=== PATIENT | female | born 1950 | race Caucasian/White ===

== ENCOUNTER 2016-12-05 08:47 | Outpatient (CLI) | payer MEDICAID | END 2016-12-05 08:48 | disposition home or self-care (01) | DX: I10 Essential (primary) hypertension (principal); E78.5 Hyperlipidemia, unspecified ==

== ENCOUNTER 2017-12-16 08:00 | Outpatient (CLI) | payer MEDICAID ==
[2017-12-16 19:17] LABS: BASOPHILS % (AUTO) 0.8 %; EOSINOPHILS # (AUTO) 0.1 10^3/uL (0.0-0.7); EOSINOPHILS % (AUTO) 2.8 %; HGB - HEMOGLOBIN 12.3 g/dL (12.0-16.0); LYMPHOCYTES # (AUTO) 1.5 10^3/uL (1.5-3.5); LYMPHOCYTES % (AUTO) 36.8 %; MEAN CORPUSCULAR HEMOGLOBIN 29.3 pg (27.0-31.0); MEAN CORPUSCULAR HGB CONC 32.5 g/dL (32.0-36.0); MEAN CORPUSCULAR VOLUME 90.4 fL (81.0-99.0); MEAN PLATELET VOLUME 8.9 fL (7.9-10.8); MONOCYTES # (AUTO) 0.5 10^3/uL (0.0-1.0); MONOCYTES % (AUTO) 12.1 %; NEUTROPHILS % (AUTO) 47.5 %; PLT - PLATELET COUNT 297 10^3/uL (130-450); RED BLOOD COUNT 4.19 10^6/uL (4.20-5.40); RED CELL DISTRIBUTION WIDTH 14.5 % (12.0-15.0); WHITE BLOOD COUNT 4.1 x10^3/uL (4.8-10.8)
[2017-12-16 19:52] LABS: ALBUMIN 3.9 g/dL (3.2-5.5); ALBUMIN/GLOBULIN RATIO 1.4 (1.0-2.2); ALKALINE PHOSPHATASE 57 IU/L (42-121); ALT ALANINE AMINOTRANSFERASE 15 IU/L (10-60); AST ASPARTATE AMINOTRANSFERASE 21 IU/L (10-42); BILIRUBIN,TOTAL 0.3 mg/dL (0.2-1.0); BUN - BLOOD UREA NITROGEN 9 mg/dL (6-20); CALCIUM 9.1 mg/dL (8.5-10.3); CARBON DIOXIDE - CO2 26 mmol/L (21-32); CHLORIDE 101 mmol/L (101-111); CHOL/HDL RATIO 4.1 (<4.4); CHOLESTEROL 277 mg/dL; CREATININE 0.7 mg/dL (0.4-1.0); GFR - MDRD 84 (>89); GLUCOSE 84 mg/dL (70-100); HDL CHOLESTEROL 68 mg/dL; LDL CHOLESTEROL,CALCULATED 171 mg/dL; LDL/HDL RATIO 2.5 (<4.4); SODIUM 136 mmol/L (135-145); TOTAL PROTEIN 6.6 g/dL (6.7-8.2); VLDL CHOLESTEROL 38 mg/dL
== END 2017-12-16 08:01 | disposition home or self-care (01) ==
LOC: LAB.N 08:00
PROVIDERS: ATTEND Nurse Practitioner Gerontology
DX: I10 Essential (primary) hypertension (principal); E78.5 Hyperlipidemia, unspecified; E03.9 Hypothyroidism, unspecified
CPT/HCPCS: 36415; 80050; 80061; 83721

== ENCOUNTER 2018-03-18 08:00 | Outpatient (CLI) | payer MEDICARE, MEDICAID ==
[2018-03-20 08:25] LABS: HEPATITIS C ANTIBODY NON-REACTIVE (NON-REACTIVE)
== END 2018-03-18 08:01 | disposition home or self-care (01) ==
LOC: LAB.N 08:00
PROVIDERS: ATTEND Nurse Practitioner Gerontology
DX: Z72.89 Other problems related to lifestyle (principal)
CPT/HCPCS: 36415; 86803

== ENCOUNTER 2019-05-11 12:01 | Outpatient (CLI) | payer MEDICARE ==
--- NOTE | 2019-05-12 08:22 | Mammography Report ---
Reason: SCREENING MAMMO Procedure Date: 05/11/2019 Accession Number: [id number] / [id number] Procedure: MGN - Screening Mammo Dig Bilat CPT Code: FULL RESULT: EXAM: Screening Mammo Dig Bilat DATE: 05/11/2019 12:29 PM CLINICAL HISTORY: Screening encounter. No reported risk factors. TECHNIQUE: (B) - Bilateral CC and MLO views were obtained. COMPARISON: 11/28/2015 and 12/10/2013. PARENCHYMAL PATTERN: (F) - The breast(s) demonstrate(s) diffuse fatty replacement. FINDINGS: A posterior upper breast nodule with architectural appearance and location most compatible with lymph node is noted dating as far back as 2013 but has now enlarged, 1.3 x 0.9 cm 17.8 cm from the nipple on the right MLO view with an adjacent stable well-circumscribed isodense 0.6 cm nodule. This is not seen in CC projection. Recommend focused right breast ultrasound to confirm preservation of normal lymph node architecture to confirm the interval increase in prominence as a reactive finding. There are no suspicious masses, calcifications, or areas of distortion in the left breast. IMPRESSION: Incomplete examination. BI-RADS category 0. RECOMMENDATION: (ADDUS) - Targeted ultrasound recommended. Focused right breast ultrasound. BI-RADS CATEGORY: (0) - Incomplete Examination - need additional evaluation. STANDARD QUALIFYING STATEMENTS: 1. This examination was not reviewed with the aid of Computer-Aided Detection (CAD). 2. A negative or benign imaging report should not preclude biopsy if clinically suspicious findings are present. 3. Dense breasts may obscure an underlying neoplasm. 4. This examination was reviewed without the aid of 3D breast imaging (tomosynthesis).
== END 2019-05-11 12:02 | disposition home or self-care (01) ==
LOC: DI.N 12:01
DX: Z12.31 Encounter for screening mammogram for malignant neoplasm of breast (principal); R92.8 Other abnormal and inconclusive findings on diagnostic imaging of breast
CPT/HCPCS: 77067

== ENCOUNTER 2019-07-26 11:16 | Outpatient (CLI) | payer MEDICARE ==
--- NOTE | 2019-07-26 13:44 | Ultrasound Report ---
Reason: ABNORMAL MAMMOGRAM Procedure Date: 07/26/2019 Accession Number: [id number] / [id number] Procedure: US - Breast Unilateral Limited CPT Code: FULL RESULT: EXAM: Breast Ultrasound Unilateral Limited DATE: 07/26/2019 12:35 PM CLINICAL HISTORY: ABNORMAL MAMMOGRAM COMPARISON: 05/11/2019 mammogram. TECHNIQUE: Targeted ultrasound was performed of the right breast in the area of clinical concern at 9:00 o'clock and 14 cm distance from the nipple. Color Doppler was employed as appropriate. FINDINGS: 2 adjacent lymph nodes are present corresponding to the mammographic abnormality. The larger measures 1.1 x 0.9 x 0.7 cm with an adjacent 0.4 x 0.3 x 0.4 cm lymph node. Both lymph nodes are morphologically unremarkable. In the right axilla a prominent 1.9 x 1 x 2.3 cm lymph node is seen. IMPRESSION: Probable benign findings right breast RECOMMENDATION: Recommend diagnostic right mammogram and ultrasound in 6 months. BIRADS CATEGORY 3 probably benign RADIA
== END 2019-07-26 11:17 | disposition home or self-care (01) ==
LOC: DI 11:16
PROVIDERS: ATTEND Specialist
DX: R92.8 Other abnormal and inconclusive findings on diagnostic imaging of breast (principal)
CPT/HCPCS: 76642

== ENCOUNTER 2020-05-03 10:54 | Outpatient (CLI) | payer MEDICARE ==
--- NOTE | 2020-05-04 08:13 | Mammography Report ---
UNILATERAL RIGHT DIGITAL DIAGNOSTIC MAMMOGRAM 3D/2D: 05/03/2020 CLINICAL: Patient returns for a 6 month follow up of the right breast. Comparison is made to exams dated: 05/11/2019 mammogram, 11/28/2015 mammogram, and 12/10/2013 mammogram - [facility]. The tissue of right breast is predominantly fatty. There is a stable normal appearing lymph node in the right breast posterior depth superior region see n on the mediolateral oblique view only. This is decreased in size from the prior mammogram dated 07/26/19, and has a similar appearance to prior mammograms. No other significant masses or calcifications are seen in the breast. IMPRESSION: There is no mammographic evidence of malignancy. Return to annual mammogram screening schedule is rec ommended. This exam was interpreted at Station ID: [id number]. NOTE: For mammograms, a report in lay terms will be sent to the patient. Approximately 15% of breast malignancies will not be visualized mammographically. In the management of a palpable breast mass, a negative mammogram must not discourage biopsy of a clinically suspicious lesion. Electronically Signed By: Gisela Jolley M.D. lk/:05/03/2020 12:23:17 ACR BI-RADS Category 2: Benign Finding(s) 3342F PARENCHYMAL PATTERN: (F) - The breast(s) demonstrate(s) diffuse fatty replacement. BI-RADS CATEGORY: (2) - 2 RECOMMENDATION: (ANNUAL) - Recommend routine annual screening mammography. [id number] return to screening LATERALITY: (B)
== END 2020-05-03 10:55 | disposition home or self-care (01) ==
LOC: DI 10:54
PROVIDERS: ATTEND Physician Assistant Medical
DX: R92.8 Other abnormal and inconclusive findings on diagnostic imaging of breast (principal)

== ENCOUNTER 2020-08-07 06:25 | Emergency (ER) | payer MEDICARE ==
[2020-08-07 06:48] LABS: BASOPHILS # (AUTO) 0.1 10^3/uL (0.0-0.1); BASOPHILS % (AUTO) 0.6 %; EOSINOPHILS # (AUTO) 0.1 10^3/uL (0.0-0.7); EOSINOPHILS % (AUTO) 1.2 %; HGB - HEMOGLOBIN 8.3 g/dL (12.0-16.0); LYMPHOCYTES # (AUTO) 1.6 10^3/uL (1.5-3.5); LYMPHOCYTES % (AUTO) 18.1 %; MEAN CORPUSCULAR HEMOGLOBIN 21.1 pg (27.0-31.0); MEAN CORPUSCULAR HGB CONC 30.2 g/dL (32.0-36.0); MEAN CORPUSCULAR VOLUME 69.8 fL (81.0-99.0); MEAN PLATELET VOLUME 9.6 fL (7.9-10.8); MONOCYTES # (AUTO) 0.9 10^3/uL (0.0-1.0); NEUTROPHILS # (AUTO) 6.2 10^3/uL (1.5-6.6); NEUTROPHILS % (AUTO) 69.9 %; PLT - PLATELET COUNT 442 10^3/uL (130-450); RED BLOOD COUNT 3.94 10^6/uL (4.20-5.40); RED CELL DISTRIBUTION WIDTH 19.1 % (12.0-15.0); WHITE BLOOD COUNT 8.8 x10^3/uL (4.8-10.8)
[2020-08-07 07:01] LABS: ALBUMIN 4.1 g/dL (3.2-5.5); ALBUMIN/GLOBULIN RATIO 1.4 (1.0-2.2); BILIRUBIN,TOTAL 0.7 mg/dL (0.2-1.0); CALCIUM 9.1 mg/dL (8.5-10.3); CREATININE 0.7 mg/dL (0.4-1.0); TOTAL PROTEIN 7.1 g/dL (6.7-8.2)
--- NOTE | 2020-08-07 07:05 | ED Physician Documentation ---
PD HPI ABD PAIN - Stated complaint Stated Complaint: ABDOMINAL PX - Chief complaint Chief Complaint: Abd Pain - History obtained from History obtained from: Patient - History of Present Illness Timing - onset: Yesterday Timing - duration: Days (2) Timing - details: Abrupt onset, Still present Quality: Aching, Sharp, Pain Location: LUQ, LLQ Radiation: No: Lower back, Left flank Improved by: Vomiting (once yesterday with the pain). No: Eating Worsened by: No: Eating Associated symptoms: Nausea, Constipation (had some constipation recently but then larger BM yesterday after the cramping pain. Pain improved. Today with some softer stool, mild red color with wiping. Has left lower pain today.), Hematochezia (some red with wiping and around the stool yesterday and then again today. No signifant bleeding amount. No clots. no melena.). No: Fever, Melena, Dysuria, Near syncope / syncope Similar symptoms before: Has not had sx before Review of Systems Constitutional: denies: Fever, Chills Nose: denies: Rhinorrhea / runny nose, Congestion Throat: denies: Sore throat Respiratory: denies: Cough GI: reports: Constipation : denies: Dysuria, Frequency PD PAST MEDICAL HISTORY - Past Medical History Past Medical History: Yes Cardiovascular: Hypertension, High cholesterol Respiratory: None Endocrine/Autoimmune: HyPOthyroidism, Other GI: Other : None HEENT: None Psych: None Musculoskeletal: Osteoarthritis, Chronic back pain, Other Derm: None Other Past Medical History: GASTRIC ULCER. history of iron deficiency anemia; does not take Iron supplement due to constipating. - Past Surgical History Past Surgical History: Yes General: Colonoscopy Ortho: Knee replacement, Other /ELECTRIC TRUCK OPERATOR: Tubal ligation - Present Medications Home Medications: Ambulatory Orders Medication Instructions Recorded Confirmed Ferrous Fumarate [Iron] 55 mg PO DAILY 03/23/13 10/04/15 Lisinopril 20 mg PO 03/23/13 10/04/15 Levothyroxine [Synthroid] 50 mcg PO QDAC 09/24/13 10/04/15 traMADol [Ultram] 50 mg PO Q4-6H 09/24/13 10/04/15 Cholesterol Med 10/04/15 10/04/15 HYDROcod/ACETAM 5/325 [[place] 5/325] 1 - 2 ea PO Q6H PRN #15 tablet 10/04/15 Cephalexin [Keflex] 500 mg PO TID #15 capsule 08/07/20 Docusate Sodium 100 mg PO DAILY #30 capsule 08/07/20 Ferrous Sulfate 325 mg PO DAILY #30 tablet 08/07/20 Naproxen 375 mg PO TID #15 tablet 08/07/20 metroNIDAZOLE [Flagyl] 500 mg PO BID #10 tablet 08/07/20 - Allergies Allergies/Adverse Reactions: Allergies Allergy/AdvReac Type Severity Reaction Status Date / Time No Known Drug Allergies Allergy Verified 08/07/20 06:43 - Social History Does the pt smoke?: No Smoking Status: Never smoker Does the pt drink ETOH?: No PD ED PE NORMAL - Vitals Vital signs reviewed: Yes - General General: Alert and oriented X 3, No acute distress, Well developed/nourished - HEENT HEENT: Moist mucous membranes, Pharynx benign - Neck Neck: Supple, no meningeal sign, No adenopathy - Cardiac Cardiac: RRR, No murmur - Respiratory Respiratory: Clear bilaterally - Abdomen Abdomen: Normal bowel sounds, Soft, Non distended, No organomegaly, Other (minimally tender left lower abd without percussion nor rebound tenderness. ) Results - Vitals Vitals: Vital Signs - 24 hr 08/07/20 08/07/20 08/07/20 06:25 08:25 09:59 Temperature 36.7 C 36.2 C L Heart Rate 99 66 77 Respiratory 18 18 16 Rate Blood Pressure 144/86 H 135/84 H 132/78 H O2 Saturation 98 98 100 Oxygen O2 Source Room air - Labs Labs: Laboratory Tests 08/07/20 08/07/20 08/07/20 06:42 06:42 06:42 WBC 8.8 RBC 3.94 L Hgb 8.3 L Hct 27.5 L MCV 69.8 L MCH 21.1 L MCHC 30.2 L RDW 19.1 H Plt Count 442 MPV 9.6 Neut # (Auto) 6.2 Lymph # (Auto) 1.6 [place] # (Auto) 0.9 Eos # (Auto) 0.1 Baso # (Auto) 0.1 Absolute Nucleated RBC 0.00 Nucleated RBC % 0.0 Sodium 136 Potassium 3.5 Chloride 104 Carbon Dioxide 22 Anion Gap 10.0 BUN 9 Creatinine 0.7 Estimated GFR (MDRD) 83 L Glucose 134 H Calcium 9.1 Iron 14 L TIBC 497 H % Saturation 3 L Transferrin 355 Total Bilirubin 0.7 AST 25 ALT 23 Alkaline Phosphatase 79 Total Protein 7.1 Albumin 4.1 Globulin 3.0 Albumin/Globulin Ratio 1.4 Lipase 32 Urine Color Urine Clarity Urine pH Ur Specific [place] Urine Protein Urine Glucose (UA) Urine Ketones Urine Occult Blood Urine Nitrite Urine Bilirubin Urine Urobilinogen Ur Leukocyte Esterase Ur Microscopic Review Urine Culture Comments 08/07/20 08:25 WBC RBC Hgb Hct MCV MCH MCHC RDW Plt Count MPV Neut # (Auto) Lymph # (Auto) [place] # (Auto) Eos # (Auto) Baso # (Auto) Absolute Nucleated RBC Nucleated RBC % Sodium Potassium Chloride Carbon Dioxide Anion Gap BUN Creatinine Estimated GFR (MDRD) Glucose Calcium Iron TIBC % Saturation Transferrin Total Bilirubin AST ALT Alkaline Phosphatase Total Protein Albumin Globulin Albumin/Globulin Ratio Lipase Urine Color LIGHT YELLOW Urine Clarity CLEAR Urine pH 6.5 Ur Specific [place] <=1.005 Urine Protein NEGATIVE Urine Glucose (UA) NEGATIVE Urine Ketones NEGATIVE Urine Occult Blood NEGATIVE Urine Nitrite NEGATIVE Urine Bilirubin NEGATIVE Urine Urobilinogen 0.2 (NORMAL) Ur Leukocyte Esterase NEGATIVE Ur Microscopic Review NOT INDICATED Urine Culture Comments NOT INDICATED - Rads (name of study) abd/pelvic CT Radiology: Prelim report reviewed (segmental colitis transverse (mild), descending and sigmoid colon. ), See rad report PD MEDICAL DECISION MAKING - ED course Complexity details: reviewed results (segmental colitis descending and sigmoid colitis, some transverse as well. Also anemia but does not clinically seem to have significant GI bleeding, so presume mostly chronic. No comparator labs. ), considered differential (consider colitis, diverticulitis, mass lesion, other concerns. ), d/w patient Departure - Departure Disposition: 01 Home, Self Care Clinical Impression: Acute colitis, Lower GI bleeding Anemia Qualifiers: Anemia type: iron deficiency Iron deficiency anemia type: unspecified iron deficiency Qualified Code(s): D50.9 - Iron deficiency anemia, unspecified Condition: Stable Record reviewed to determine appropriate education?: Yes Instructions: ED Diverticulitis, ED Bleed UGI Stable Follow-Up: Dyan Canales DO [Primary Care Provider] - Prescriptions: Docusate Sodium 100 mg PO DAILY #30 capsule Ferrous Sulfate 325 mg PO DAILY #30 tablet metroNIDAZOLE [Flagyl] 500 mg PO BID #10 tablet Cephalexin [Keflex] 500 mg PO TID #15 capsule Naproxen 375 mg PO TID #15 tablet Comments: Area of inflammation and presumed infection in the colon (colitis) and some small diverticula noted. We will treat this with anti-inflammatories as well as antibiotics. That presumably is the source of your bleeding. Recheck if you have persistent or increased GI bleeding or abdominal pain fever vomiting or other concerns. You are anemic presumed from chronic iron deficiency as well as some of the blood loss currently. Add an iron supplement daily along with a stool softener daily and take those regularly for a month. Follow-up with your primary care later this week, call for an appointment. Return if worsening. Discharge Date/Time: 08/07/20 10:03
[2020-08-07] MEDS ORDERED: IOVERSOL 320 100 ML VIAL IVP ONE ×2 (07:59→17:43)
[2020-08-07 08:03] LABS: % IRON SATURATION 3 % (20-50); IRON 14 ug/dL (28-170); TOTAL IRON BINDING CAPACITY 497 ug/dL (250-450); TRANSFERRIN 355 mg/dL (192-382)
[2020-08-07 08:47] LABS: BILIRUBIN,URINE NEGATIVE (NEGATIVE); GLUCOSE, URINE (UA) NEGATIVE (NEGATIVE); KETONES,URINE (UA) NEGATIVE (NEGATIVE); LEUKOCYTE ESTERASE, URINE NEGATIVE (NEGATIVE); NITRITE,URINE NEGATIVE (NEGATIVE); OCCULT BLOOD,URINE NEGATIVE (NEGATIVE); PH,URINE 6.5 PH (5.0-7.5); PROTEIN,URINE NEGATIVE (NEGATIVE); UROBILINOGEN,URINE 0.2 (NORMAL) E.U./dL (NORMAL)
[2020-08-07 08:48] LABS: CLARITY,URINE CLEAR (CLEAR)
--- NOTE | 2020-08-07 08:53 | CT Report ---
PROCEDURE: Abdomen/Pelvis W INDICATIONS: LEFT abdominal pain and some blood in stool CONTRAST: IV CONTRAST: Optiray 320 ml: 100 PO CONTRAST: *NO PO CONTRAST TECHNIQUE: After the administration of intravenous contrast, 5 mm thick sections acquired from the diaphragms to the symphysis. 5 mm thick coronal and sagittal reformats were acquired. For radiation dose reducti on, the following was used: automated exposure control, adjustment of mA and/or kV according to brandy ent size. COMPARISON: None. FINDINGS: Image quality: Excellent. ABDOMEN: Lung bases: There are 2 posterior subpleural nodules within the right lower lobe measuring up to 5 mm on series 4 image 6 and 3 mm on image 13. Associated dependent atelectasis is demonstrated bilateral ly. Heart size is normal. There is a large hiatal hernia. Solid organs: Evaluation of the liver demonstrates no focal hepatic lesions. Gallbladder demonstrate s no calcified gallstones. There is focal wall thickening and nondistention in the gallbladder fundus which is nonspecific and may reflect a phrygian cap or possibly adenomyomatosis. Biliary system is n on dilated. Pancreas enhances normally. No adrenal nodules. Kidneys demonstrate no hydronephrosis. Peritoneum and bowel: Small bowel loops demonstrate normal wall thickness and caliber. The appendix is normal in appearance. There is a short segment of colonic wall thickening and pericolonic fat stra nding involving the distal transverse colon as well as a long segment of wall thickening and pericolo marlena fat stranding involving the descending and sigmoid colon. Findings are consistent with a nonspeci fic colitis. A few colonic diverticula are demonstrated without definite acute diverticulitis. No stanley e fluid or air. Nodes and vessels: No retroperitoneal or mesenteric adenopathy by size criteria. Aorta and inferior vena cava are normal in size. Miscellaneous: No ventral hernias. PELVIS: Genitourinary: Bladder wall thickness is normal. Miscellaneous: No inguinal hernias or adenopathy. Bones: No suspicious bony lesions. No vertebral body compression fractures. IMPRESSION: 1. Segmental colitis involving the descending and sigmoid colon likely infectious or inflammatory in etiology. 2. Short segment of colonic wall thickening is also demonstrated in the distal transverse colon. Find ings also likely represent an infectious or inflammatory colitis. However, given the slightly lobulat ed appearance, an intramural mass cannot be excluded. Consider follow-up evaluation with colonoscopy. 3. Localized wall thickening and nondistention in the gallbladder fundus may reflect a phrygian cap o r adenomyomatosis. Further evaluation may be obtained with ultrasound if clinically indicated. Reviewed by: Dashawn Boykin MD on 08/07/2020 8:52 AM PDT Approved by: Dashawn Boykin MD on 08/07/2020 8:52 AM PDT Station ID: [id number]
[2020-08-07] MEDS ORDERED: metroNIDAZOLE 250 MG TABLET PO STA (09:24)
[2020-08-07] MEDS ORDERED: KETOROLAC 15 MG/ML VIAL IVP STA (09:24)
[2020-08-07] MEDS ORDERED: cefTRIAXone 1 GM VIAL IVP STA (09:24)
[2020-08-07 10:00] VITALS: BP 132/78
== END 2020-08-07 10:03 | disposition home or self-care (01) ==
LOC: ED 06:25
DX: K52.9 Noninfective gastroenteritis and colitis, unspecified (principal); K92.1 Melena; D50.9 Iron deficiency anemia, unspecified; Z87.11 Personal history of peptic ulcer disease; I10 Essential (primary) hypertension
CPT/HCPCS: 36415; 74177; 80053; 81003; 83540; 83690; 84466; 85025; 96374; 99284; A9270; Q9967; 81001; 87086

== ENCOUNTER 2021-01-14 11:36 | Outpatient (CLI) | payer MEDICARE | END 2021-01-14 11:37 | disposition critical access hospital (66) | LOC: EMS 11:36 | PROVIDERS: ATTEND Emergency Medicine | DX: R22.42 Localized swelling, mass and lump, left lower limb (principal) | CPT/HCPCS: A0425; A0429 ==

== ENCOUNTER 2021-01-14 11:56 | Inpatient (IN) | payer MEDICARE ==
--- NOTE | 2021-01-14 12:26 | ED Physician Documentation ---
PD HPI LOWER EXT INJURY - Stated complaint Stated Complaint: LEG INJ - Chief complaint Chief Complaint: Ext Problem - History obtained from History obtained from: Patient - Additional information Additional information: She fell off a stepstool today at home and has moderate pain of the left ankle on the medial side. No other injuries. She is not able to walk or bear weight. No other injuries. Declines pain medication on Initial evaluation. 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 : None HEENT: None Psych: None Musculoskeletal: Osteoarthritis, Chronic back pain, Other Derm: None - Past Surgical History Past Surgical History: Yes General: Colonoscopy Ortho: Knee replacement, Other /FRONT DESK WORKER: Tubal ligation - Present Medications Home Medications: Ambulatory Orders Medication Instructions Recorded Confirmed Lisinopril 20 mg PO DAILY 03/23/13 01/14/21 Levothyroxine [Synthroid] 50 mcg PO QDAC 09/24/13 01/14/21 Docusate Sodium 100 mg PO DAILY #30 capsule 08/07/20 01/14/21 Ferrous Sulfate 325 mg PO DAILY #30 tablet 08/07/20 01/14/21 Atorvastatin Calcium 40 mg PO DAILY 01/14/21 01/14/21 - Allergies Allergies/Adverse Reactions: Allergies Allergy/AdvReac Type Severity Reaction Status Date / Time No Known Drug Allergies Allergy Verified 01/14/21 12:05 - Social History Does the pt smoke?: No Smoking Status: Never smoker Does the pt drink ETOH?: No Does the pt have substance abuse?: No - Immunizations Immunizations are current?: Yes - POLST Patient has POLST: No PD ED PE NORMAL - Vitals Vital signs reviewed: Yes - General General: Alert and oriented X 3, No acute distress - HEENT HEENT: PERRL, EOMI - Neck Neck: Supple, no meningeal sign, No bony TTP - Cardiac Cardiac: RRR, No murmur - Respiratory Respiratory: No respiratory distress, Clear bilaterally - Abdomen Abdomen: Normal bowel sounds, Soft, Non tender - Back Back: No CVA TTP, No spinal TTP - Derm Derm: Normal color, Warm and dry - Extremities Extremities: Other (Left ankle has what looks like arthritic changes. She does not tolerate internal rotation of the leg, but is not obviously tender anywhere.) - Neuro Neuro: Alert and oriented X 3, Normal speech - Psych Psych: Normal mood, Normal affect Results - Vitals Vitals: Vital Signs - 24 hr 01/14/21 12:04 Temperature 36 C L Heart Rate 82 Respiratory 16 Rate Blood Pressure 143/95 H O2 Saturation 99 Oxygen O2 Source Room air - Labs Labs: Laboratory Tests 01/14/21 01/14/21 01/14/21 12:51 12:51 12:51 WBC 6.6 RBC 4.52 Hgb 13.4 Hct 41.2 MCV 91.2 MCH 29.6 MCHC 32.5 RDW 17.2 H Plt Count 311 MPV 9.8 Neut # (Auto) 4.7 Lymph # (Auto) 1.2 L [place] # (Auto) 0.5 Eos # (Auto) 0.1 Baso # (Auto) 0.1 Absolute Nucleated RBC 0.00 Nucleated RBC % 0.0 PT 11.8 INR 1.1 Sodium 139 Potassium 3.9 Chloride 103 Carbon Dioxide 26 Anion Gap 10.0 BUN 15 Creatinine 0.7 Estimated GFR (MDRD) 83 L Glucose 112 H Calcium 9.4 - Rads (name of study) L ankle/knee XR Radiology: EMP read contemporaneously (There is a displaced oblique fracture of the distal tibial shaft well above the ankle mortise and a proximal fibular frac ture.) Procedures - Splint (location) LLE Splint applied by: Tech Type of splint: Fiberglass, Short leg, Posterior Other: Patient tolerated well, No complications, Neurovascular intact PD MEDICAL DECISION MAKING - ED course ED course: 70-year-old with highly left lady, she has a tibial shaft fracture and a proximal fibular fracture 2. She was splinted. Spoke with our on-call orthopedist Dr. Cline who requests admission to medicine with likely surgical fixation tomorrow. He asked me to perform a CT to rule out posterior malleolar fracture and this was ordered. Departure - Departure Disposition: 66 [facility] DC/Xfer Clinical Impression: Maisonneuve fracture of left fibula Qualifiers: Encounter type: initial encounter Fracture type: closed Fracture alignment: displaced Qualified Code(s): S82.862A - Displaced Maisonneuve's fracture of left leg, initial encounter for closed fracture Fracture of tibial shaft, left, closed Qualifiers: Encounter type: initial encounter Fracture morphology: oblique Fracture alignment: displaced Qualified Code(s): S82.232A - Displaced oblique fracture of shaft of left tibia, initial encounter for closed fracture Condition: Good Record reviewed to determine appropriate education?: Yes Discharge Date/Time: 01/14/21 14:37
[2021-01-14] MEDS ORDERED: MORPHINE 2 MG/ML CARPUJECT IVP STA (12:44)
[2021-01-14 12:56] LABS: BASOPHILS # (AUTO) 0.1 10^3/uL (0.0-0.1); BASOPHILS % (AUTO) 0.9 %; EOSINOPHILS # (AUTO) 0.1 10^3/uL (0.0-0.7); EOSINOPHILS % (AUTO) 0.9 %; HCT - HEMATOCRIT 41.2 % (37.0-47.0); HGB - HEMOGLOBIN 13.4 g/dL (12.0-16.0); LYMPHOCYTES # (AUTO) 1.2 10^3/uL (1.5-3.5); LYMPHOCYTES % (AUTO) 17.7 %; MEAN CORPUSCULAR HEMOGLOBIN 29.6 pg (27.0-31.0); MEAN CORPUSCULAR HGB CONC 32.5 g/dL (32.0-36.0); MEAN CORPUSCULAR VOLUME 91.2 fL (81.0-99.0); MEAN PLATELET VOLUME 9.8 fL (7.9-10.8); MONOCYTES # (AUTO) 0.5 10^3/uL (0.0-1.0); MONOCYTES % (AUTO) 8.2 %; NEUTROPHILS # (AUTO) 4.7 10^3/uL (1.5-6.6); PLT - PLATELET COUNT 311 10^3/uL (130-450); RED BLOOD COUNT 4.52 10^6/uL (4.20-5.40); RED CELL DISTRIBUTION WIDTH 17.2 % (12.0-15.0); WHITE BLOOD COUNT 6.6 x10^3/uL (4.8-10.8)
--- NOTE | 2021-01-14 12:58 | XRAY Report ---
PROCEDURE: Ankle 2 View LT INDICATIONS: ANKLE INJ TECHNIQUE: 2 views of the ankle were acquired. COMPARISON: None FINDINGS: Bones: Moderately displaced oblique fracture of the distal tibia. Healed fracture of the distal fibul a. Periarticular osteophyte formation at the tibiotalar, subtalar, and talonavicular joints. Ankle mo rtise is normally aligned. No suspicious bony lesions. Soft tissues: No tibiotalar joint effusion. Achilles tendon appears normal. IMPRESSION: 1. Moderately displaced distal tibial fracture. Reviewed by: Jenny Mehta MD on 01/14/2021 11:57 AM [facility] Approved by: Jenny Mehta MD on 01/14/2021 11:57 AM [facility] Station ID: [id number]
[2021-01-14 13:04] LABS: CALCIUM 9.4 mg/dL (8.5-10.3); CREATININE 0.7 mg/dL (0.4-1.0); INR 1.1 (0.8-1.2); POTASSIUM 3.9 mmol/L (3.5-5.0); PT - PROTHROMBIN TIME 11.8 secs (9.9-12.6)
--- NOTE | 2021-01-14 13:23 | XRAY Report ---
PROCEDURE: Knee 2 View LT INDICATIONS: leg inj TECHNIQUE: 2 views of the left knee(s) were acquired. COMPARISON: None. FINDINGS: Bones: No suspicious bony lesions. Medial compartment arthroplasty. Severe tricompartmental periarti cular osteophyte formation. Moderately displaced comminuted fracture of the proximal fibula. Soft tissues: No joint effusion. No suspicious soft tissue calcifications. IMPRESSION: Proximal fibular fracture. Reviewed by: Jenny Mehta MD on 01/14/2021 12:22 PM [place] Approved by: Jenny Mehta MD on 01/14/2021 12:22 PM [place] Station ID: [id number]
--- NOTE | 2021-01-14 13:55 | CT Report ---
PROCEDURE: LOWER EXTREMITY WO - LT INDICATIONS: ankle frx/ r/o posterior malleolus frx TECHNIQUE: Noncontrast 3 mm axial sections acquired of the ankle, with coronal and sagittal reformats. COMPARISON: Plain films dated 01/14/2021 FINDINGS: Image quality: Excellent. Bones: Moderately displaced oblique fracture of the distal tibia. No evidence of involvement of the medial, nor posterior malleolus. Chronic fracture of the mid/distal fibular metaphysis. Minimally dis placed acute fracture of the distal fibula. Moderate periarticular osteophyte formation at the tibiot alar, subtalar, and talonavicular joints, indicating osteoarthritis. Soft tissues: No soft tissue fluid collections. IMPRESSION: 1. Acute distal tibial and fibular fractures as above. 2. Healed mid/distal fibular fracture Reviewed by: Jenny Mehta MD on 01/14/2021 12:54 PM [place] Approved by: Jenny Mehta MD on 01/14/2021 12:54 PM [place] Station ID: [id number]
[2021-01-14 15:29] LABS: CORONAVIRUS 229E-RESP PCR NOT DETECTED; CORONAVIRUS HKU1-RESP PCR NOT DETECTED; CORONAVIRUS NL63-RESP PCR NOT DETECTED; CORONAVIRUS OC43-RESP PCR NOT DETECTED; HUMAN METAPNEUMOVIRUS NOT DETECTED; SARS-CoV-2 -RESP PCR PANEL NOT DETECTED
[2021-01-14 15:30] LABS: B. PARAPERTUSSIS- RESP PCR PAN NOT DETECTED; B. PERTUSSIS- RESP PCR PANEL NOT DETECTED; C. PNEUMONIAE- RESP PCR PANEL NOT DETECTED; INFLUENZA A- RESP PCR PANEL NOT DETECTED; INFLUENZA B - RESP PCR PANEL NOT DETECTED; M. PNEUMONIAE- RESP PCR PANEL NOT DETECTED; PARAINFLUENZA VIRUS 1 NOT DETECTED; PARAINFLUENZA VIRUS 2 NOT DETECTED; PARAINFLUENZA VIRUS 3 NOT DETECTED; PARAINFLUENZA VIRUS 4 NOT DETECTED; RHINOVIRUS/ENTEROVIRUS NOT DETECTED; RSV- RESP PCR PANEL NOT DETECTED
[2021-01-14] MEDS ORDERED: oxyCODONE 5 MG TABLET PO PRN (16:03)
[2021-01-14] MEDS ORDERED: HYDROmorphone 0.5 MG/0.5 ML SYRINGE IVP PRN (16:03)
[2021-01-14] MEDS ORDERED: ACETAMINOPHEN 325 MG TABLET PO PRN (16:03)
[2021-01-14] MEDS ORDERED: ONDANSETRON 4 MG/2 ML VIAL IVP PRN (16:03)
[2021-01-14] MEDS ORDERED: SODIUM CHLORIDE FLUSH 0.9% 10 ML SYRINGE IVP PRN (16:03)
[2021-01-14] MEDS: SODIUM CHLORIDE FLUSH 0.9% 10 ML SYRINGE IVP SCH (16:28)
[2021-01-14] MEDS: NS W/20 MEQ KCL 1,000 ML IV SCH (16:28)
[2021-01-14] MEDS: IBUPROFEN 600 MG TABLET PO PRN (18:38)
--- NOTE | 2021-01-14 18:47 | CONSULTATION NOTE ---
Referring Provider Name of Referring Provider:: Dr. Zepeda Consult Date: 01/14/21 Chief Complaint - Chief Complaint Chief Complaint: Pain in left leg following fall at home History of Present Illness - Admitted From Admitted From:: emergency room - History Obtained From Records Reviewed: yes History obtained from: patient Exam Limitations: none - History of Present Illness HPI Comment/Other: This is a relatively healthy 70-year-old woman who lives in [place]. She went to get on a stepstool to change a light bulb and fell and injured her lower left leg. She had immediate pain and was unable to bear weight. The injury occurred at home. She denies chest pain, shortness of breath, syncope or loss of consciousness associated with the fall. She has no other complaints of pain other than the lower left leg. In about 2012 she had a medial compartment arthroplasty, unicompartmental left knee. She has mild pain to the left knee but also has pain to the right knee. She denies pain to her left ankle prior to the fall but she did have an ankle fracture in about 1977. She had a varicose vein removed from the medial ankle in about 1994 without any recurrence. She is independent in activities of daily living, lives alone, drives shops does her own cooking and cleaning. Her general health has been relatively good. She denies diabetes, heart attack, stroke, deep venous thrombosis or pulmonary embolus. She is a non-smoker and is never smoked. She rarely uses alcohol. History - Past Medical History Cardiovascular: reports: Hypertension, High cholesterol Respiratory: reports: None Neuro: reports: None Endocrine/Autoimmune: reports: HyPOthyroidism, Other GI: reports: Other SEPTIC CLEANER: reports: None : reports: None HEENT: reports: None Psych: reports: None Musculoskeletal: reports: Osteoarthritis, Chronic back pain, Other Derm: reports: None MRSA Hx?: No - Past Surgical History General: reports: Colonoscopy Ortho: reports: Knee replacement, Other /SEPTIC CLEANER: reports: Tubal ligation - POLST Patient has POLST: No Meds/Allgy - Home Medications Home Medications: Ambulatory Orders Medication Instructions Recorded Confirmed Lisinopril 20 mg PO DAILY 03/23/13 01/14/21 Levothyroxine [Synthroid] 50 mcg PO QDAC 09/24/13 01/14/21 Docusate Sodium 100 mg PO DAILY #30 capsule 08/07/20 01/14/21 Ferrous Sulfate 325 mg PO DAILY #30 tablet 08/07/20 01/14/21 Atorvastatin Calcium 40 mg PO DAILY 01/14/21 01/14/21 - Allergies Allergies/Adverse Reactions: Allergies Allergy/AdvReac Type Severity Reaction Status Date / Time No Known Drug Allergies Allergy Verified 01/14/21 12:05 Exam - Vital Signs Vital Signs: Vital Signs x48h Temp Pulse Pulse Resp BP BP Pulse Ox 01/14/21 15:39 36.8 C 70 14 145/75 H 95 01/14/21 14:52 37.1 C 67 18 95/80 01/14/21 14:34 36.3 C L 68 18 114/99 H 97 01/14/21 12:04 36 C L 82 16 143/95 H 99 - Physical Exam General Appearance: positive: No acute distress Respiratory: positive: Chest non-tender, No respiratory distress Cardiovascular: positive: Regular rate & rhythm Peripheral Pulses: positive: 2+ Abdomen: positive: Non-tender Skin: positive: Color nml, Warm, Dry Neurologic/Psychiatric: positive: Oriented x3, Motor nml, Sensation nml Comments/Other: The left lower extremity was splinted. However the short leg splint had the left ankle externally rotated. The splint was removed. Her skin is intact. There is no sign of compartment syndrome. There is no fracture blisters. There is no ecchymosis or abrasions to skin. Her neurovascular is intact to left foot and ankle she does have tenderness just above the ankle and proximal fibula. The fracture is unstable to the lower left leg. Her knee is in valgus. She has a well-healed scar from previous unicompartmental medial arthroplasty. Her foot appears on the left side. Conclusion and Plan - Lab Results Laboratory Results 01/14/21 14:30: Nasal Adenovirus (PCR) NOT DETECTED, Nasal B. parapertussis DNA (PCR) NOT DETECTED, Nasal Coronavir 229E PCR NOT DETECTED, Nasal Coronavir HKU1 PCR NOT DETECTED, Nasal Coronavir NL63 PCR NOT DETECTED, Nasal Coronavir OC43 PCR NOT DETECTED, Nasal Enterovir/Rhinovir PCR NOT DETECTED, Nasal Influenza B PCR NOT DETECTED, Nasal Influenza A PCR NOT DETECTED, Nasal Parainfluen 1 PCR NOT DETECTED, Nasal Parainfluen 2 PCR NOT DETECTED, Nasal Parainfluen 3 PCR NOT DETECTED, Nasal Parainfluen 4 PCR NOT DETECTED, Nasal RSV (PCR) NOT DETECTED, Nasal B.pertussis DNA PCR NOT DETECTED, Nasal C.pneumoniae (PCR) NOT DETECTED, Darian Human Metapneumo PCR NOT DETECTED, Nasal M.pneumoniae (PCR) NOT DETECTED, Nasal SARS-CoV-2 (PCR) NOT DETECTED 01/14/21 12:51: Sodium 139, Potassium 3.9, Chloride 103, Carbon Dioxide 26, Anion Gap 10.0, BUN 15, Creatinine 0.7, Estimated GFR (MDRD) 83 L, Glucose 112 H, Calcium 9.4 01/14/21 12:51: PT 11.8, INR 1.1 01/14/21 12:51: WBC 6.6, RBC 4.52, Hgb 13.4, Hct 41.2, MCV 91.2, MCH 29.6, MCHC 32.5, RDW 17.2 H, Plt Count 311, MPV 9.8, Neut # (Auto) 4.7, Lymph # (Auto) 1.2 L, [place] # (Auto) 0.5, Eos # (Auto) 0.1, Baso # (Auto) 0.1, Absolute Nucleated RBC 0.00, Nucleated RBC % 0.0 - Diagnostic Imaging Results Diagnostic Imaging Results: negative: Read independently (Displaced spiral fracture distal left tibia with proximal comminuted fibular fracture she does have significant degenerative joint disease to the left knee especially lateral and patellofemoral compartment with previous unicompartmental medial arthroplasty. The left ankle shows degenerative joint) - Diagnosis Diagnosis: Closed displaced distal left tibia and proximal left fibular fracture - Plan Plan: Plan I discussed both nonoperative and operative treatment with her. She would like to proceed with operative stabilization of her fracture. Since she has a unicompartmental medial arthroplasty, intramedullary rodding may be more complicated with the arthroplasty and advanced arthritis to both patellofemoral and lateral compartments. Therefore a medial locking buttress plate could be performed to stabilize the fracture of the left distal tibia. I discussed the risk, goals and likelihood of achieving goals, alternatives, disability and . Her potential complications include problems with skin healing, infection, need for plate removal, nonunion and malunion as well as posttraumatic arthritis of the left ankle. General complications would include adverse reaction to medication or anesthesia, myocardial infarction, stroke, deep venous thrombosis and pulmonary embolus. She is in agreement to the surgery and the plan is to do her surgery tomorrow. She has had preoperative medical evaluation by her hospitalist.
--- NOTE | 2021-01-14 19:05 | HISTORY & PHYSICAL EXAMINATION ---
Chief Complaint - Chief Complaint Chief Complaint: s/p mechanical fall, left leg pain History of Present Illness - Admitted From Admitted From:: [facility] ED - History Obtained From Records Reviewed: yes History obtained from: patient - History of Present Illness HPI Comment/Other: Patient is a 70-year-old female with medical history significant for hyperlipidemia, hypertension, hypothyroidism and anemia who presented to the ED after a mechanical fall today at home. She stood on stepladder to change a light bulb when the ladder swung back causing her to fall on her bottom. She did not hit her head or blackout. It was not witnessed by anybody. She lives alone. She is experiencing leg pain as a result of the fall and presented to the ED for evaluation. CT scan of her left lower extremity showed she had an acute distal tibia and fib carlos fracture. Xray of the left knee also showed proximal fibular fracture. As a result she was presented for admission for further treatment. At bedside she is resting comfortably. She rates her pain 1 out of 10. She denies chest pain, dyspnea, abdominal pain, nausea, vomiting, fever or chills. She is an active person. She uses a walking stick to get around. History - Past Medical History Cardiovascular: reports: Hypertension, High cholesterol Respiratory: reports: None Neuro: reports: None Endocrine/Autoimmune: reports: HyPOthyroidism, Other GI: reports: Other HIGH RISK OB: reports: None : reports: None HEENT: reports: None Psych: reports: None Musculoskeletal: reports: Osteoarthritis, Chronic back pain, Other Derm: reports: None MRSA Hx?: No - Past Surgical History General: reports: Colonoscopy Ortho: reports: Knee replacement, Other /HIGH RISK OB: reports: Tubal ligation - Family & Social History Family History Comment/Other: Her father had coronary artery disease. Her mother had diabetes mellitus. Her daughter had gestational diabetes. Living arrangement: At home Living Situation: Alone Social History Notes: She does not use tobacco products or recreational substances. She occasionally drinks alcohol. - POLST Patient has POLST: No POLST Status: Full Code Meds/Allgy - Home Medications Home Medications: Ambulatory Orders Medication Instructions Recorded Confirmed Lisinopril 20 mg PO DAILY 03/23/13 01/14/21 Levothyroxine [Synthroid] 50 mcg PO QDAC 09/24/13 01/14/21 Docusate Sodium 100 mg PO DAILY #30 capsule 08/07/20 01/14/21 Ferrous Sulfate 325 mg PO DAILY #30 tablet 08/07/20 01/14/21 Atorvastatin Calcium 40 mg PO DAILY 01/14/21 01/14/21 - Allergies Allergies/Adverse Reactions: Allergies Allergy/AdvReac Type Severity Reaction Status Date / Time No Known Drug Allergies Allergy Verified 01/14/21 12:05 Review of Systems - Constitutional Constitutional: denies: Fatigue, Fever, Chills, Weakness - Eyes Eyes: denies: Pain - Ears, Nose & Throat Ears, Nose & Throat: denies: Ear pain, Sore throat - Cardiovascular Cariovascular: denies: Irregular heart rate, Palpitations, Chest pain, Edema, Lightheadedness, Syncope, Exertional dyspnea - Respiratory Respiratory: denies: Cough, Sputum production, Wheezing, SOB at rest, SOB with exertion - Gastrointestinal Gastrointestinal: denies: Abdominal pain, Abdominal distention, Constipation, Diarrhea, Nausea, Vomiting, Coffee grounds emesis, Reflux/heartburn - Genitourinary Genitourinary: denies: Dysuria, Frequency, Urgency, Hematuria - Musculoskeletal Musculoskeletal: denies: Muscle pain, Back pain, Muscle aches, Stiffness - Integumentary Integumentary: denies: Rash, Pruritis, Lesions - Psychiatric Psychiatric: denies: Depression, Anxiety - Endocrine Endocrine: denies: Polyuria, Polydypsia - Hematologic/Lymphatic Hematologic/Lymphatic: reports: Anemia. denies: Bruising, Petechiae Prior Level of Functionality: Patient is independent of activities of daily living. Exam - Vital Signs Vital Signs: Vital Signs x48h Temp Pulse Pulse Resp BP BP Pulse Ox 01/14/21 15:39 36.8 C 70 14 145/75 H 95 01/14/21 14:52 37.1 C 67 18 95/80 01/14/21 14:34 36.3 C L 68 18 114/99 H 97 01/14/21 12:04 36 C L 82 16 143/95 H 99 - Physical Exam General Appearance: positive: Alert, Mild distress Eyes Bilateral: positive: PERRL, EOMI ENT: positive: No signs of dehydration Neck: positive: No JVD, Trachea midline Respiratory: positive: Chest non-tender, No respiratory distress, Breath sounds nml. negative: Wheezes, Rales, Rhonchi Cardiovascular: positive: Regular rate & rhythm, No murmur, No gallop Abdomen: positive: Non-tender, No organomegaly, Nml bowel sounds, No distention. negative: Guarding, Rebound Back: positive: Nml inspection Skin: positive: Color nml, No rash, Warm, Dry Extremities: positive: Other (Left leg wrapped and bandage. Patient can move her toes bilaterally. Patient has sensation in her lower extremities.) Neurologic/Psychiatric: positive: Oriented x3, Mood/affect nml Conclusion/Plan - Problem List (1) Fracture of tibial shaft, left, closed Conclusion/Plan: Patient is n.p.o. after midnight in anticipation of surgery tomorrow. Pain management as needed with Tylenol, oxycodone and dilaudid as needed. Dr. Cline with orthopedic surgery was consulted and saw the patient today. Accordiing to the NSQIP Surgical Risk Calculator, Patient has a 2.8% risk of serious complications and 3.5% risk of any complication. These are significantly less than the average risk of serious complications or any complication which are 3.7% and 4.4% respectively. Risk of pneumonia is 0.1%. Predicted length of hospital stay is 1.5 days. Patient is medically optimized for surgery. Qualifiers: Encounter type: initial encounter Fracture morphology: oblique Fracture alignment: displaced Qualified Code(s): S82.232A - Displaced oblique fracture of shaft of left tibia, initial encounter for closed fracture (2) Pre-op evaluation Conclusion/Plan: Accordiing to the NSQIP Surgical Risk Calculator, Patient has a 2.8% risk of serious complications and 3.5% risk of any complication. These are significantly less than the average risk of serious complications or any complication which are 3.7% and 4.4% respectively. Risk of pneumonia is 0.1%. Predicted length of hospital stay is 1.5 days. Patient is medically optimized for surgery. (3) Hyperlipidemia Conclusion/Plan: On atorvastatin 40 mg p.o. daily. (4) Hypertension Conclusion/Plan: On lisinopril 20 mg p.o. daily. (5) Hypothyroidism Conclusion/Plan: On Synthroid 50 mcg p.o. daily AC (6) Anemia Conclusion/Plan: Chronic. Hemoglobin today is 13.4. On ferrous sulfate 325 mg p.o. daily. Qualifiers: Anemia type: iron deficiency Iron deficiency anemia type: unspecified iron deficiency Qualified Code(s): D50.9 - Iron deficiency anemia, unspecified - Lab Results Fish Bones: 01/14/21 12:51 01/14/21 12:51 Core Measures - Anticipated LOS I expect patient to be DC'd or transferred within 96 hours.: Yes - DVT/VTE - Prophylaxis VTE/DVT Device ordered at admit?: Yes VTE/DVT Prophylaxis med ordered at admit?: Yes
[2021-01-14] MEDS: FAMOTIDINE 20 MG TABLET PO SCH (20:57)
--- NOTE | 2021-01-14 21:27 | XRAY Report ---
PROCEDURE: Chest 1 View X-Ray INDICATIONS: pre-op eval TECHNIQUE: One view of the chest was acquired. COMPARISON: CT lower extremity earlier today. CT abdomen and pelvis 08/07/2020. CXR 08/27/2013. FINDINGS: Surgical changes and devices: None. Lungs and pleura: No pleural effusions or pneumothorax. Lungs are clear. Mediastinum: Mediastinal contours appear unchanged. Hiatal hernia. Heart size is normal. Bones and chest wall: No suspicious bony lesions. Overlying soft tissues appear unremarkable. IMPRESSION: No acute cardiopulmonary abnormality. Hiatal hernia. Reviewed by: Kuldip Abad MD on 01/14/2021 9:26 PM PST Approved by: Kuldip Abad MD on 01/14/2021 9:26 PM PST Station ID: [id number]
[2021-01-15] MEDS: SODIUM CHLORIDE FLUSH 0.9% 10 ML SYRINGE IVP SCH ×2 (01:37→09:11)
[2021-01-15] MEDS: NS W/20 MEQ KCL 1,000 ML IV SCH ×3 (02:30→21:35)
[2021-01-15] MEDS: IBUPROFEN 600 MG TABLET PO PRN (04:46)
[2021-01-15] MEDS: LEVOTHYROXINE 25 MCG TABLET PO SCH (06:26)
[2021-01-15 07:28] LABS: CALCIUM 8.9 mg/dL (8.5-10.3); CREATININE 0.7 mg/dL (0.4-1.0); POTASSIUM 3.9 mmol/L (3.5-5.0)
[2021-01-15 07:33] LABS: BASOPHILS % (AUTO) 0.6 %; EOSINOPHILS # (AUTO) 0.1 10^3/uL (0.0-0.7); EOSINOPHILS % (AUTO) 1.1 %; HCT - HEMATOCRIT 37.5 % (37.0-47.0); HGB - HEMOGLOBIN 12.4 g/dL (12.0-16.0); LYMPHOCYTES # (AUTO) 1.5 10^3/uL (1.5-3.5); LYMPHOCYTES % (AUTO) 22.7 %; MEAN CORPUSCULAR HEMOGLOBIN 30.4 pg (27.0-31.0); MEAN CORPUSCULAR HGB CONC 33.1 g/dL (32.0-36.0); MEAN CORPUSCULAR VOLUME 91.9 fL (81.0-99.0); MEAN PLATELET VOLUME 10.1 fL (7.9-10.8); MONOCYTES # (AUTO) 0.7 10^3/uL (0.0-1.0); MONOCYTES % (AUTO) 11.2 %; NEUTROPHILS # (AUTO) 4.1 10^3/uL (1.5-6.6); NEUTROPHILS % (AUTO) 64.2 %; PLT - PLATELET COUNT 284 10^3/uL (130-450); RED BLOOD COUNT 4.08 10^6/uL (4.20-5.40); RED CELL DISTRIBUTION WIDTH 17.3 % (12.0-15.0); WHITE BLOOD COUNT 6.4 x10^3/uL (4.8-10.8)
[2021-01-15] MEDS ORDERED: NON FORMULARY MED (Lisinopril [Lisinopril] 10 MG Tablet) PO SCH (09:00)
[2021-01-15] MEDS: lisinopriL 20 MG TABLET PO SCH (09:10)
[2021-01-15] MEDS: FERROUS SULFATE 325 MG TABLET PO SCH (09:10)
[2021-01-15] MEDS: ATORVASTATIN 40 MG TABLET PO SCH (09:10)
[2021-01-15] MEDS: FAMOTIDINE 20 MG TABLET PO SCH ×2 (09:10→21:35)
--- NOTE | 2021-01-15 09:13 | PHARMACY PROGRESS NOTE ---
- Best Possible Medication History Admit Date and Time: 01/14/21 1408 Processed by: Nursing Medication History completed: Yes As the person ultimately responsible for medication therapy, providers are able to order a medication from an existing home medication list in [facility] via the "Reconcile Routine" prior to Confirmation of that medication by client support representative. Such practice is discouraged except when the physician, in their clinical judgment, deems that a medical need exists for a medication without regard to previous use.
[2021-01-15] MEDS ORDERED: LIDOCAINE-MPF 2% 5 ML VIAL ONE (09:23)
[2021-01-15] MEDS ORDERED: ROCURONIUM 50 MG/5 ML VIAL ONE (09:23)
[2021-01-15] MEDS ORDERED: PROPOFOL 200 MG/20 ML VIAL IVP ONE (09:23)
--- NOTE | 2021-01-15 11:16 | ANESTHESIA ---
Pre-Anesthesia VS, & Labs - Diagnosis Diagnosis Closed displaced distal left tibia and proximal left fibular fracture - Procedure ORIF left tibia fracture Vital Signs: Temp Pulse Resp BP Pulse Ox 36.6 C 80 18 163/86 H 95 01/15/21 10:32 01/15/21 10:32 01/15/21 10:32 01/15/21 10:32 01/15/21 10:32 Height: 5 ft 9 in Weight (kg): 111.5 kg Body Mass Index: 36.3 BMI Classification: Obese - NPO >8 hours - Is Patient ?: No - Lab Results Current Lab Results: Laboratory Tests 01/15/21 07:15: Sodium 140, Potassium 3.9, Chloride 105, Carbon Dioxide 24, Anion Gap 11.0, BUN 11, Creatinine 0.7, Estimated GFR (MDRD) 83 L, Glucose 103 H , Calcium 8.9 01/15/21 07:15: WBC 6.4, RBC 4.08 L, Hgb 12.4, Hct 37.5, MCV 91.9, MCH 30.4, MCHC 33.1, RDW 17.3 H, Plt Count 284, MPV 10.1, Neut # (Auto) 4.1, Lymph # (Auto) 1.5, [place] # (Auto) 0.7, Eos # (Auto) 0.1, Baso # (Auto) 0.0, Absolute Nucleated RBC 0.00, Nucleated RBC % 0.0 01/14/21 12:51: Sodium 139, Potassium 3.9, Chloride 103, Carbon Dioxide 26, Anion Gap 10.0, BUN 15, Creatinine 0.7, Estimated GFR (MDRD) 83 L, Glucose 112 H , Calcium 9.4 01/14/21 12:51: PT 11.8, INR 1.1 01/14/21 12:51: WBC 6.6, RBC 4.52, Hgb 13.4, Hct 41.2, MCV 91.2, MCH 29.6, MCHC 32.5, RDW 17.2 H, Plt Count 311, MPV 9.8, Neut # (Auto) 4.7, Lymph # (Auto) 1.2 L, [place] # (Auto) 0.5, Eos # (Auto) 0.1, Baso # (Auto) 0.1, Absolute Nucleated RBC 0.00, Nucleated RBC % 0.0 Fish Bones: 01/15/21 07:15 01/15/21 07:15 Home Medications and Allergies Home Medications: Ambulatory Orders Atorvastatin Calcium 40 mg PO DAILY 01/14/21 Active Medications Acetaminophen (Acetaminophen 325 Mg Tablet) 650 mg PO Q4HR PRN PRN Reason: Pain 1 to 4 Last Admin: 01/15/21 01:52 Dose: 650 mg Documented by: Atorvastatin Calcium (Atorvastatin 40 Mg Tablet) 40 mg PO DAILY [facility] Last Admin: 01/15/21 09:10 Dose: 40 mg Documented by: Famotidine (Famotidine 20 Mg Tablet) 20 mg PO BID [facility] Last Admin: 01/15/21 09:10 Dose: 20 mg Documented by: Ferrous Sulfate (Ferrous Sulfate 325 Mg Tablet) 325 mg PO DAILY [facility] Last Admin: 01/15/21 09:10 Dose: 325 mg Documented by: Hydromorphone HCl (Hydromorphone 0.5 Mg/0.5 Ml Syringe) 0.5 mg IVP Q2H PRN PRN Reason: Pain 8 to 10 Potassium Chloride/Sodium Chloride (Normal Saline 0.9% W/20 Meq Kcl) 1,000 mls @ 100 mls/hr IV .Q10H [facility] Last Admin: 01/15/21 02:30 Dose: 100 mls/hr Documented by: Ibuprofen (Ibuprofen 600 Mg Tablet) 600 mg PO Q6HR PRN PRN Reason: Pain 1 to 4 Last Admin: 01/15/21 04:46 Dose: 600 mg Documented by: Levothyroxine Sodium (Levothyroxine 25 Mcg Tablet) 50 mcg PO QDAC [facility] Last Admin: 01/15/21 06:26 Dose: 50 mcg Documented by: Lisinopril (Lisinopril 20 Mg Tablet) 20 mg PO DAILY [facility] Last Admin: 01/15/21 09:10 Dose: 20 mg Documented by: Ondansetron HCl (Ondansetron 4 Mg/2 Ml Vial) 4 mg IVP Q6HR PRN PRN Reason: Nausea / Vomiting Oxycodone HCl (Oxycodone 5 Mg Tablet) 5 mg PO Q4HR PRN PRN Reason: Pain 5 to 7 Sodium Chloride (Sodium Chloride Flush 0.9% 10 Ml Syringe) 10 ml IVP PRN PRN PRN Reason: NEEDED PER PROVIDER ORDERS Sodium Chloride (Sodium Chloride Flush 0.9% 10 Ml Syringe) 10 ml IVP 0100,0900,1700 LOU Last Admin: 01/15/21 09:11 Dose: Not Given Documented by: Lisinopril 20 mg PO DAILY 03/23/13 Levothyroxine [Synthroid] 50 mcg PO QDAC 09/24/13 Atorvastatin Calcium 40 mg PO DAILY 01/14/21 Allergies/Adverse Reactions: Allergies Allergy/AdvReac Type Severity Reaction Status Date / Time No Known Drug Allergies Allergy Verified 01/14/21 12:05 Anes History & Medical History - Anesthetic History Anesthesia Complications: reports: No previous complications - Medical History Cardiovascular: reports: Hypertension, High cholesterol Pulmonary: reports: None Gastrointestinal: reports: None Urinary: reports: None Neuro: reports: None Musculoskeletal: reports: Osteoarthritis, Chronic back pain, Other Endocrine/Autoimmune: reports: HyPOthyroidism, Other Blood Disorders: reports: Anemia Skin: reports: None Smoking Status: Never smoker Psychosocial: reports: No issues indicated History of Cancer?: No - Surgical History General: reports: Colonoscopy Gynecologic: reports: Tubal ligation Orthopedic: reports: Knee replacement, Other Exam General: Alert, Oriented x3, Cooperative, No acute distress Dental: Poor dentition, Other (missing front) Mouth Openin Fingerbreadth Neck Mobility: Normal Mallampati classification: II Thyromental Distance: 4-6 cm Mental/Cognitive Status: Alert/Oriented X3, Normal for patient Plan Anesthesia Type: General, Popliteal Block (left) Regional Block: Per Surgeon's request for Post Op pain control Consent for Procedure(s) Verified and Reviewed: Yes Code Status: Attempt Resuscitation ASA classification: 2-Mild systemic disease Is this case an emergency?: No
[2021-01-15] MEDS ORDERED: ROPIVACAINE 0.5% PF 20 ML AMPULE ONE (13:18)
[2021-01-15] MEDS ORDERED: DEXAMETHASONE 4 MG/ML VIAL ONE (13:19)
[2021-01-15] MEDS ORDERED: BACITRACIN ZINC OINT 1 PACKET TOP ONE (13:20)
[2021-01-15] MEDS ORDERED: LIDOCAINE 2%-EPI 1:100000 20 ML MDV ONE (13:21)
[2021-01-15] MEDS ORDERED: fentaNYL 100 MCG/2 ML VIAL ONE (13:23)
[2021-01-15] MEDS ORDERED: MIDAZOLAM 2 MG/2 ML VIAL ONE (13:23)
[2021-01-15] MEDS ORDERED: ceFAZolin 1 GM VIAL ONE (14:52)
--- NOTE | 2021-01-15 14:57 | PROVIDER PROGRESS NOTE ---
Assessment/Plan - Problem List (1) Fracture of tibial shaft, left, closed Qualifiers: Encounter type: initial encounter Fracture morphology: oblique Fracture alignment: displaced Qualified Code(s): S82.232A - Displaced oblique fracture of shaft of left tibia, initial encounter for closed fracture Assessment/Plan: Patient is in the surgery now, Follow-up the care for status post of surgery, DVT prophylaxis per surgeon, Continue pain control, continue physical therapist and occupational therapist consult. (2) Pre-op evaluation The admission physician already did pre-operation evaluation as Patient is medically optimized for surgery. patient is in the surgery now. we will followup care for pt (3) Hyperlipidemia continue atorvastatin 40 mg p.o. daily. (4) Hypertension stable, Continue lisinopril (5) Hypothyroidism will check TSH and On Synthroid 50 mcg p.o. daily AC - Current Meds Current Meds: Current Medications Generic Name Dose Route Start Last Admin Trade Name Freq PRN Reason Stop Dose Admin Acetaminophen 650 mg 01/14/21 16:03 01/15/21 01:52 Acetaminophen 325 Mg Tablet PO 650 mg Q4HR PRN Administration Pain 1 to 4 Atorvastatin Calcium 40 mg 01/15/21 09:00 01/15/21 09:10 Atorvastatin 40 Mg Tablet PO 40 mg DAILY LOU Administration Famotidine 20 mg 01/14/21 21:00 01/15/21 09:10 Famotidine 20 Mg Tablet PO 20 mg BID LOU Administration Ferrous Sulfate 325 mg 01/15/21 09:00 01/15/21 09:10 Ferrous Sulfate 325 Mg Tablet PO 325 mg DAILY LOU Administration Potassium Chloride/Sodium Chloride 1,000 mls @ 100 mls/hr 01/14/21 17:00 01/15/21 12:25 Normal Saline 0.9% W/20 Meq Kcl IV 100 mls/hr .Q10H LOU Administration Ibuprofen 600 mg 01/14/21 16:03 01/15/21 04:46 Ibuprofen 600 Mg Tablet PO 600 mg Q6HR PRN Administration Pain 1 to 4 Levothyroxine Sodium 50 mcg 01/15/21 07:00 01/15/21 06:26 Levothyroxine 25 Mcg Tablet PO 50 mcg QDAC LOU Administration Lisinopril 20 mg 01/15/21 09:00 01/15/21 09:10 Lisinopril 20 Mg Tablet PO 20 mg DAILY LOU Administration Sodium Chloride 10 ml 01/14/21 17:00 01/15/21 09:11 Sodium Chloride Flush 0.9% 10 Ml Syringe IVP Not Given 0100,0900,1700 LOU - Lab Result Fish Bone Diagrams: 01/15/21 07:15 01/15/21 07:15 - Additional Planning My Orders: My Active Orders 01/16/21 05:00 TSH [THYROID STIMULATING HORMONE] [IAI] DAILYLAB Subjective - Subjective Patient Reports: Feeling Better Objective Vital Signs: Vital Signs - 24 hr 01/14/21 01/14/21 01/14/21 15:39 21:00 23:53 Temperature 36.8 C 37.1 C 37.1 C Heart Rate 84 Heart Rate [ 70 84 Brachial] Respiratory 14 16 16 Rate Blood Pressure 145/75 H 143/72 H [Right Brachial artery] O2 Saturation 95 95 95 01/15/21 10:32 Temperature 36.6 C Heart Rate Heart Rate [ 80 Brachial] Respiratory 18 Rate Blood Pressure 163/86 H [Right Brachial artery] O2 Saturation 95 Oxygen O2 Source Room air I&O (Last 24 Hrs): Intake and Output Totals x24h 01/13/21 01/14/21 01/15/21 23:59 23:59 23:59 Intake Total 590 1991.667 Output Total 150 275 Balance 440 1716.667 General: Alert, Oriented x3, Cooperative, No acute distress HEENT: Atraumatic Neck: Supple Lymphatic: no adenopathy Neuro: Alert, Non Focal, Oriented Times 3 Cardiovascular: Regular rate, Normal S1, Normal S2 Respiratory: Chest non-tender, No respiratory distress, Breath sounds nml Abdomen: Normal bowel sounds, Soft, No tenderness Extremities: Normal pulses - Results Results: Laboratory Results WBC 6.4 x10^3/uL (4.8-10.8) 01/15/21 07:15 RBC 4.08 10^6/uL (4.20-5.40) L 01/15/21 07:15 Hgb 12.4 g/dL (12.0-16.0) 01/15/21 07:15 Hct 37.5 % (37.0-47.0) 01/15/21 07:15 MCV 91.9 fL (81.0-99.0) 01/15/21 07:15 MCH 30.4 pg (27.0-31.0) 01/15/21 07:15 MCHC 33.1 g/dL (32.0-36.0) 01/15/21 07:15 RDW 17.3 % (12.0-15.0) H 01/15/21 07:15 Plt Count 284 10^3/uL (130-450) 01/15/21 07:15 MPV 10.1 fL (7.9-10.8) 01/15/21 07:15 Neut # (Auto) 4.1 10^3/uL (1.5-6.6) 01/15/21 07:15 Lymph # (Auto) 1.5 10^3/uL (1.5-3.5) 01/15/21 07:15 Johnston # (Auto) 0.7 10^3/uL (0.0-1.0) 01/15/21 07:15 Eos # (Auto) 0.1 10^3/uL (0.0-0.7) 01/15/21 07:15 Baso # (Auto) 0.0 10^3/uL (0.0-0.1) 01/15/21 07:15 Absolute Nucleated RBC 0.00 x10^3/uL 01/15/21 07:15 Nucleated RBC % 0.0 /100WBC 01/15/21 07:15 PT 11.8 secs (9.9-12.6) 01/14/21 12:51 INR 1.1 (0.8-1.2) 01/14/21 12:51 Sodium 140 mmol/L (135-145) 01/15/21 07:15 Potassium 3.9 mmol/L (3.5-5.0) 01/15/21 07:15 Chloride 105 mmol/L (101-111) 01/15/21 07:15 Carbon Dioxide 24 mmol/L (21-32) 01/15/21 07:15 Anion Gap 11.0 (6-13) 01/15/21 07:15 BUN 11 mg/dL (6-20) 01/15/21 07:15 Creatinine 0.7 mg/dL (0.4-1.0) 01/15/21 07:15 Estimated GFR (MDRD) 83 (>89) L 01/15/21 07:15 Glucose 103 mg/dL (70-100) H 01/15/21 07:15 Calcium 8.9 mg/dL (8.5-10.3) 01/15/21 07:15 Nasal Adenovirus (PCR) NOT DETECTED 01/14/21 14:30 Nasal B. parapertussis DNA (PCR) NOT DETECTED 01/14/21 14:30 Nasal Coronavir 229E PCR NOT DETECTED 01/14/21 14:30 Nasal Coronavir HKU1 PCR NOT DETECTED 01/14/21 14:30 Nasal Coronavir NL63 PCR NOT DETECTED 01/14/21 14:30 Nasal Coronavir OC43 PCR NOT DETECTED 01/14/21 14:30 Nasal Enterovir/Rhinovir PCR NOT DETECTED 01/14/21 14:30 Nasal Influenza B PCR NOT DETECTED 01/14/21 14:30 Nasal Influenza A PCR NOT DETECTED 01/14/21 14:30 Nasal Parainfluen 1 PCR NOT DETECTED 01/14/21 14:30 Nasal Parainfluen 2 PCR NOT DETECTED 01/14/21 14:30 Nasal Parainfluen 3 PCR NOT DETECTED 01/14/21 14:30 Nasal Parainfluen 4 PCR NOT DETECTED 01/14/21 14:30 Nasal RSV (PCR) NOT DETECTED 01/14/21 14:30 Nasal B.pertussis DNA PCR NOT DETECTED 01/14/21 14:30 Nasal C.pneumoniae (PCR) NOT DETECTED 01/14/21 14:30 Darian Human Metapneumo PCR NOT DETECTED 01/14/21 14:30 Nasal M.pneumoniae (PCR) NOT DETECTED 01/14/21 14:30 Nasal SARS-CoV-2 (PCR) NOT DETECTED 01/14/21 14:30 - Procedures Procedures: Procedures ESOPHAGOGASTRODUODENOSCOPY [EGD] W/CLOSED BIOPSY (04/01/13) TOTAL KNEE REPLACEMENT (09/27/13) ABX Reporting Has patient been on IV antibiotics over the past 48 hours?: No Current Medications - Current Medications Current Medications: Active Medications Acetaminophen (Acetaminophen 325 Mg Tablet) 650 mg PO Q4HR PRN PRN Reason: Pain 1 to 4 Last Admin: 01/15/21 01:52 Dose: 650 mg Documented by: Atorvastatin Calcium (Atorvastatin 40 Mg Tablet) 40 mg PO DAILY [facility] Last Admin: 01/15/21 09:10 Dose: 40 mg Documented by: Famotidine (Famotidine 20 Mg Tablet) 20 mg PO BID [facility] Last Admin: 01/15/21 09:10 Dose: 20 mg Documented by: Ferrous Sulfate (Ferrous Sulfate 325 Mg Tablet) 325 mg PO DAILY [facility] Last Admin: 01/15/21 09:10 Dose: 325 mg Documented by: Hydromorphone HCl (Hydromorphone 0.5 Mg/0.5 Ml Syringe) 0.5 mg IVP Q2H PRN PRN Reason: Pain 8 to 10 Potassium Chloride/Sodium Chloride (Normal Saline 0.9% W/20 Meq Kcl) 1,000 mls @ 100 mls/hr IV .Q10H [facility] Last Admin: 01/15/21 12:25 Dose: 100 mls/hr Documented by: Ibuprofen (Ibuprofen 600 Mg Tablet) 600 mg PO Q6HR PRN PRN Reason: Pain 1 to 4 Last Admin: 01/15/21 04:46 Dose: 600 mg Documented by: Levothyroxine Sodium (Levothyroxine 25 Mcg Tablet) 50 mcg PO QDAC [facility] Last Admin: 01/15/21 06:26 Dose: 50 mcg Documented by: Lisinopril (Lisinopril 20 Mg Tablet) 20 mg PO DAILY [facility] Last Admin: 01/15/21 09:10 Dose: 20 mg Documented by: Ondansetron HCl (Ondansetron 4 Mg/2 Ml Vial) 4 mg IVP Q6HR PRN PRN Reason: Nausea / Vomiting Oxycodone HCl (Oxycodone 5 Mg Tablet) 5 mg PO Q4HR PRN PRN Reason: Pain 5 to 7 Sodium Chloride (Sodium Chloride Flush 0.9% 10 Ml Syringe) 10 ml IVP PRN PRN PRN Reason: NEEDED PER PROVIDER ORDERS Sodium Chloride (Sodium Chloride Flush 0.9% 10 Ml Syringe) 10 ml IVP 0100,0900,1700 [facility] Last Admin: 01/15/21 09:11 Dose: Not Given Documented by: Lisinopril 20 mg PO DAILY 03/23/13 Levothyroxine [Synthroid] 50 mcg PO QDAC 09/24/13 Atorvastatin Calcium 40 mg PO DAILY 01/14/21
[2021-01-15] MEDS ORDERED: HYDROmorphone 1 MG/ML CARPUJECT ONE (15:27)
[2021-01-15] MEDS ORDERED: MORPHINE 2 MG/ML CARPUJECT IVP PRN ×2 (16:28→17:15)
[2021-01-15] MEDS ORDERED: fentaNYL 100 MCG/2 ML VIAL IVP PRN (16:28)
[2021-01-15] MEDS ORDERED: NALOXONE 0.4 MG/ML VIAL IVP PRN (16:28)
[2021-01-15] MEDS ORDERED: ATROPINE ABBOJECT 1 MG/10 ML SYRINGE IVP PRN (16:28)
[2021-01-15] MEDS ORDERED: ONDANSETRON 4 MG/2 ML VIAL IVP PRN ×2 (16:28→17:15)
[2021-01-15] MEDS ORDERED: HYDROmorphone 0.5 MG/0.5 ML SYRINGE IVP PRN (16:28)
[2021-01-15] MEDS ORDERED: ONDANSETRON 4 MG/2 ML VIAL ONE (16:34)
[2021-01-15] MEDS ORDERED: VANCOMYCIN 1 GM VIAL ONE (16:39)
[2021-01-15] MEDS ORDERED: LACTATED RINGERS 1,000 ML IV SCH (17:00)
[2021-01-15] MEDS ORDERED: PROCHLORPERAZINE 10 MG/2 ML VIAL IVP PRN (17:15)
[2021-01-15] MEDS ORDERED: SODIUM CHLORIDE FLUSH 0.9% 10 ML SYRINGE IVP PRN (17:15)
[2021-01-15] MEDS ORDERED: ACETAMINOPHEN 1,000 MG/100 ML 100 ML IV PRN (17:15)
[2021-01-15] MEDS ORDERED: oxyCODONE 5 MG TABLET PO PRN (17:15)
[2021-01-15] MEDS ORDERED: DOCUSATE SODIUM 100 MG CAPSULE PO PRN (17:15)
[2021-01-15] MEDS ORDERED: LACTATED RINGERS 1,000 ML IV ONE (17:16)
--- NOTE | 2021-01-15 17:19 | OPERATIVE REPORT ---
Operative Report - General Admit Date: 01/14/21 Procedure Date: 01/15/21 Planned Procedure: Open reduction internal fixationLeft tibia Pre-Op Diagnosis: Displaced spiral fracture left distal tibia and proximal fibula Procedure Performed: Open reduction internal fixation left distal tibia with [employer] 15 hole medial tibial locking plate Post Op Diagnosis: Same as preoperative diagnosis - Procedure Note Primary Surgeon: Rich Cline MD Secondary Surgeon: Miky LIMA Anesthesia Provider: Eran Domingo CRNA Anesthesia Technique: General ET tube, Regional block Estimated Blood Loss (mL): 50 Indications: This is a 70-year-old woman with a fall and isolated injury to left leg. She has a unstable displaced spiral fracture of the distal tibia and proximal fibula. She was admitted yesterday, splinted and had medical evaluation. She is in relatively good health and a community ambulator, independent in activities of daily living. She had good pulses in soft tissues, no excessive swelling or sign of compartment syndrome. Neurovascular status was intact to left foot and ankle. Her x-rays were abnormal and showed displaced distal third tibial fracture and a proximal fibular fracture. Findings: Displaced distal tibial fracture, shaft with proximal fibular fracture left leg Complications: None noted - Other Other Information/Narrative: Patient was brought to the operating room, given a general endotracheal anesthetic and a adductor block to the left femur. She was placed in a supine position with a bump beneath the left buttock and a foam bolster beneath the left leg. A pneumatic tourniquet had been applied to the proximal left thigh but was not utilized during surgery. A physician assistant professor of philosophy was utilized to facilitate reduction, protection of vital structures, wound closure and splint application. A timeout procedure was performed by the entire operating room team and all were in agreement. The C-arm image intensifier was utilized intermittently throughout the procedure and was covered with a sterile drape. The C-arm was brought in from the opposite side of the surgeon. A 7 cm incision was made just above the medial malleolus and extended posterior to the tibia in a longitudinal direction. The posterior tibial tendon was identified and protected. The posterior tibial tendon was hypertrophied is likely from longstanding pronation and valgus deformity of the left foot. The fracture was identified, reduced with traction and internal rotation. 2 K wires were placed perpendicular to the fracture line using the C-arm image intensifier. The 15 hole medial buttress locking plate made by [employer] was inserted. This was ran directly against bone to passive subcutaneously in a proximal direction. The plate was secured distally with a K wire and a nonlocking screw to compress plate to bone. Proximally the plate was stabilized with a K wire. 2 lag screws were inserted across the fracture to compress plate to bone and stabilize the fracture. The plate seemed to compress well with nonlocking screws. A nonlocking cortical screw was placed in the most proximal hole. The plate seemed to fit nicely. Nonlocking screws were then inserted distally and then along the plate more proximally. There is seem to be good fixation and stability of the fracture. The fracture aligned well, slight displacement on the lateral view and very good alignment on the AP view. There is no clinical deformity. A tourniquet was not necessary. Hemostasis have been controlled with electrocautery. The wounds were thoroughly irrigated. Vancomycin powder, 1 g was placed in the wound before closure the subcutaneous tissue was closed with 2-0 Vicryl. The skin was closed with running 4-0 nylon suture. The small stab incisions where the screws were in place more proximally were closed with stainless steel michelle. The distalmost wound was closed with the 4-0 nylon. A well-padded short leg modified [place] Faith dressing with fiberglass posterior splint was applied. She received 2 g of Ancef intravenously. She tolerated the procedure well
--- NOTE | 2021-01-15 17:39 | ANESTHESIA POST OP EVALUATION ---
Anesthesia Post Eval - Post Anesthesia Eval Vitals: Last Vital Signs Temp 37 C 01/15/21 17:25 Pulse 94 01/15/21 17:30 Resp 16 01/15/21 17:30 BP 162/91 H 01/15/21 17:30 Pulse Ox 96 01/15/21 17:30 CV Function Including HR & BP: positive: Stable Pain Control: positive: Satisfactory Nausea & Vomiting: positive: Negative Mental Status: positive: Patient Participates Respiratory Status: Airway Patent Hydration Status: Satisfactory Anesthesia Complications: positive: None
--- NOTE | 2021-01-15 18:01 | XRAY Report ---
PROCEDURE: OR C-Arm Procedure INDICATIONS: ORIF TIBIA TECHNIQUE: 2 views of the distal tibia acquired. COMPARISON: [place] x-ray 01/14/2021. FINDINGS: 2 intraoperative fluoroscopic images demonstrate improved alignment status post open reduction and in ternal fixation of previous described spiral fracture of the distal tibial shaft. There is a healed fracture of the distal fibular shaft. IMPRESSION: 1. Intraoperative fluoroscopic images demonstrate improved alignment status post ORIF of distal tibia l fracture. Reviewed by: Dashawn Boykin MD on 01/15/2021 5:00 PM [facility] Approved by: Dashawn Boykin MD on 01/15/2021 5:00 PM [facility] Station ID: [id number]
[2021-01-15] MEDS ORDERED: CELECOXIB 100 MG CAPSULE PO SCH (21:00)
[2021-01-15] MEDS: ceFAZolin 2 GM/50 ML 2 GM/50 ML BAG IV SCH (21:51)
[2021-01-16] MEDS: ACETAMINOPHEN 325 MG TABLET PO PRN ×2 (00:44→20:43)
[2021-01-16] MEDS: SODIUM CHLORIDE FLUSH 0.9% 10 ML SYRINGE IVP SCH ×3 (01:53→17:27)
[2021-01-16] MEDS: ceFAZolin 2 GM/50 ML 2 GM/50 ML BAG IV SCH (05:28)
[2021-01-16] MEDS: NS W/20 MEQ KCL 1,000 ML IV SCH (05:28)
[2021-01-16] MEDS: LEVOTHYROXINE 25 MCG TABLET PO SCH (05:32)
[2021-01-16 05:35] LABS: BASOPHILS % (AUTO) 0.4 %; EOSINOPHILS % (AUTO) 0.1 %; HCT - HEMATOCRIT 34.4 % (37.0-47.0); HGB - HEMOGLOBIN 11.4 g/dL (12.0-16.0); LYMPHOCYTES # (AUTO) 0.9 10^3/uL (1.5-3.5); MEAN CORPUSCULAR HEMOGLOBIN 30.5 pg (27.0-31.0); MEAN CORPUSCULAR HGB CONC 33.1 g/dL (32.0-36.0); MEAN PLATELET VOLUME 10.1 fL (7.9-10.8); MONOCYTES # (AUTO) 0.7 10^3/uL (0.0-1.0); MONOCYTES % (AUTO) 9.5 %; NEUTROPHILS # (AUTO) 5.4 10^3/uL (1.5-6.6); NEUTROPHILS % (AUTO) 76.7 %; PLT - PLATELET COUNT 265 10^3/uL (130-450); RED BLOOD COUNT 3.74 10^6/uL (4.20-5.40); WHITE BLOOD COUNT 7.1 x10^3/uL (4.8-10.8)
[2021-01-16 05:45] LABS: CALCIUM 8.3 mg/dL (8.5-10.3); CREATININE 0.5 mg/dL (0.4-1.0); POTASSIUM 3.9 mmol/L (3.5-5.0)
[2021-01-16] MEDS: ATORVASTATIN 40 MG TABLET PO SCH (08:03)
[2021-01-16] MEDS: FAMOTIDINE 20 MG TABLET PO SCH ×2 (08:03→20:43)
[2021-01-16] MEDS: ASPIRIN EC 81 MG TABLET PO SCH ×2 (08:03→17:27)
[2021-01-16] MEDS: FERROUS SULFATE 325 MG TABLET PO SCH (08:04)
[2021-01-16] MEDS: lisinopriL 20 MG TABLET PO SCH (08:04)
[2021-01-16] MEDS: DOCUSATE SODIUM 250 MG CAPSULE PO SCH (09:46)
--- NOTE | 2021-01-16 10:18 | PROVIDER PROGRESS NOTE ---
Subjective - General Admit Date: 01/14/21 Procedure Date: 01/15/21 Post Op Days: 1 - Review of Systems Wound/Incisions: positive: Dressing dry and intact General: positive: No symptoms Pulmonary: positive: No symptoms Objective - Patient Data Vital Signs: Vital Signs x48h Temp Pulse Resp BP Pulse Ox 01/16/21 08:00 37.3 C 90 14 168/89 H 95 01/16/21 05:42 36.9 C 80 16 144/73 H 95 01/16/21 03:53 37.0 C 90 20 146/70 H 96 Weight: Weight 01/14/21 01/15/21 01/16/21 23:59 23:59 23:59 Weight (kg) 111.5 kg 111.5 kg Intake & Output: Intake and Output Totals x24h 01/14/21 01/15/21 01/16/21 23:59 23:59 23:59 Intake Total 590 2958.334 1098.333 Output Total 150 3125 700 Balance 440 -166.666 398.333 - Lab Results Lab Results: 01/16/21 05:06 01/16/21 05:06 Other Lab Results: Lab Results x24hrs 01/16/21 01/16/21 01/16/21 Range/Units 05:06 05:06 05:06 WBC 7.1 (4.8-10.8) x10^3/uL RBC 3.74 L (4.20-5.40) 10^6/uL Hgb 11.4 L (12.0-16.0) g/dL Hct 34.4 L (37.0-47.0) % MCV 92.0 (81.0-99.0) fL MCH 30.5 (27.0-31.0) pg MCHC 33.1 (32.0-36.0) g/dL RDW 17.0 H (12.0-15.0) % Plt Count 265 (130-450) 10^3/uL MPV 10.1 (7.9-10.8) fL Neut # (Auto) 5.4 (1.5-6.6) 10^3/uL Lymph # (Auto) 0.9 L (1.5-3.5) 10^3/uL Reynolds # (Auto) 0.7 (0.0-1.0) 10^3/uL Eos # (Auto) 0.0 (0.0-0.7) 10^3/uL Baso # (Auto) 0.0 (0.0-0.1) 10^3/uL Absolute Nucleated RBC 0.00 x10^3/uL Nucleated RBC % 0.0 /100WBC Sodium 135 (135-145) mmol/L Potassium 3.9 (3.5-5.0) mmol/L Chloride 105 (101-111) mmol/L Carbon Dioxide 23 (21-32) mmol/L Anion Gap 7.0 (6-13) BUN 10 (6-20) mg/dL Creatinine 0.5 (0.4-1.0) mg/dL Estimated GFR (MDRD) 123 (>89) Glucose 108 H (70-100) mg/dL Calcium 8.3 L (8.5-10.3) mg/dL TSH 1.39 (0.34-5.60) uIU/mL - Current Medications Current Medications: Current Medications Generic Name Dose Route Start Last Admin Trade Name Freq PRN Reason Stop Dose Admin Acetaminophen 650 - 975 mg 01/15/21 17:15 01/16/21 00:44 Acetaminophen 325 Mg Tablet PO 650 mg Q4HR PRN Administration PAIN Aspirin 81 mg 01/16/21 08:00 01/16/21 08:03 Aspirin Ec 81 Mg Tablet PO 81 mg BIDWM LOU Administration Atorvastatin Calcium 40 mg 01/15/21 09:00 01/16/21 08:03 Atorvastatin 40 Mg Tablet PO 40 mg DAILY LOU Administration Docusate Sodium 100 mg 01/15/21 17:15 01/16/21 08:15 Docusate Sodium 100 Mg Capsule PO 100 mg BID PRN Administration Constipation Docusate Sodium 250 - 500 mg 01/16/21 09:00 01/16/21 09:46 Docusate Sodium 250 Mg Capsule PO Not Given DAILY LOU Famotidine 20 mg 01/14/21 21:00 01/16/21 08:03 Famotidine 20 Mg Tablet PO 20 mg BID LOU Administration Ferrous Sulfate 325 mg 01/15/21 09:00 01/16/21 08:04 Ferrous Sulfate 325 Mg Tablet PO 325 mg DAILY LOU Administration Ibuprofen 600 mg 01/14/21 16:03 01/15/21 04:46 Ibuprofen 600 Mg Tablet PO 600 mg Q6HR PRN Administration Pain 1 to 4 Levothyroxine Sodium 50 mcg 01/15/21 07:00 01/16/21 05:32 Levothyroxine 25 Mcg Tablet PO 50 mcg QDAC LOU Administration Lisinopril 20 mg 01/15/21 09:00 01/16/21 08:04 Lisinopril 20 Mg Tablet PO 20 mg DAILY LOU Administration Sodium Chloride 10 ml 01/16/21 01:00 01/16/21 08:04 Sodium Chloride Flush 0.9% 10 Ml Syringe IVP 10 ml 0100,0900,1700 LOU Administration - Physical Exam Wound/Incisions: positive: Dressing dry and intact General Appearance: positive: No acute distress Neurologic/Psychiatric: positive: Oriented x3, Motor nml, Sensation nml Comments/Other: She is postop day 1 following open reduction internal fixation of her distal tibial fracture with a medial locking plate. Her pain control is excellent. She is in a short leg splint. Color, motion sensation intact to right foot. Impression/Plan - Problem List Problem List: Status post open reduction internal fixation for displaced fracture right tibia/proximal fibula Physical and occupational therapy has been ordered. She needs to ambulate with a walker with nonweightbearing on the right leg. Discharge planning either to home with help or alf facility. She will need to be nonweightbearing for approximately 6 weeks following surgery, right leg
--- NOTE | 2021-01-16 12:28 | PROVIDER PROGRESS NOTE ---
Assessment/Plan - Problem List (1) Fracture of tibial shaft, left, closed Qualifiers: Encounter type: initial encounter Fracture morphology: oblique Fracture alignment: displaced Qualified Code(s): S82.232A - Displaced oblique fracture of shaft of left tibia, initial encounter for closed fracture Assessment/Plan: 01/16 day 1 status post of surgery repair of fracture of left tibial shaft. Co ntinue follow-up with orthopedic surgeon, pain control, DVT prophylaxis with aspirin bid, continue PT/OT Patient is in the surgery now, Follow-up the care for status post of surgery, DVT prophylaxis per surgeon, Continue pain control, continue physical therapist and occupational therapist consult. (2) Hyperlipidemia continue atorvastatin 40 mg p.o. daily. (3) Hypertension stable, Continue lisinopril (4) Hypothyroidism TSH is normal, continue Synthroid 50 mcg p.o. daily AC - Current Meds Current Meds: Current Medications Generic Name Dose Route Start Last Admin Trade Name Freq PRN Reason Stop Dose Admin Acetaminophen 650 - 975 mg 01/15/21 17:15 01/16/21 00:44 Acetaminophen 325 Mg Tablet PO 650 mg Q4HR PRN Administration PAIN Aspirin 81 mg 01/16/21 08:00 01/16/21 08:03 Aspirin Ec 81 Mg Tablet PO 81 mg BIDWM LOU Administration Atorvastatin Calcium 40 mg 01/15/21 09:00 01/16/21 08:03 Atorvastatin 40 Mg Tablet PO 40 mg DAILY LOU Administration Docusate Sodium 100 mg 01/15/21 17:15 01/16/21 08:15 Docusate Sodium 100 Mg Capsule PO 100 mg BID PRN Administration Constipation Docusate Sodium 250 - 500 mg 01/16/21 09:00 01/16/21 09:46 Docusate Sodium 250 Mg Capsule PO Not Given DAILY LOU Famotidine 20 mg 01/14/21 21:00 01/16/21 08:03 Famotidine 20 Mg Tablet PO 20 mg BID LOU Administration Ferrous Sulfate 325 mg 01/15/21 09:00 01/16/21 08:04 Ferrous Sulfate 325 Mg Tablet PO 325 mg DAILY LOU Administration Ibuprofen 600 mg 01/14/21 16:03 01/15/21 04:46 Ibuprofen 600 Mg Tablet PO 600 mg Q6HR PRN Administration Pain 1 to 4 Levothyroxine Sodium 50 mcg 01/15/21 07:00 01/16/21 05:32 Levothyroxine 25 Mcg Tablet PO 50 mcg QDAC LOU Administration Lisinopril 20 mg 01/15/21 09:00 01/16/21 08:04 Lisinopril 20 Mg Tablet PO 20 mg DAILY LOU Administration Sodium Chloride 10 ml 01/16/21 01:00 01/16/21 08:04 Sodium Chloride Flush 0.9% 10 Ml Syringe IVP 10 ml 0100,0900,1700 LOU Administration - Lab Result Fish Bone Diagrams: 01/16/21 05:06 01/16/21 05:06 - Additional Planning My Orders: My Active Orders 01/16/21 09:00 Docusate Sodium 250Mg Capsule [Colace 250Mg Capsule] 250 - 500 mg PO DAILY Subjective - Subjective Patient Reports: Feeling Better Objective Vital Signs: Vital Signs - 24 hr 01/15/21 01/15/21 01/15/21 17:15 17:20 17:25 Temperature 37.3 C 37 C Heart Rate 91 88 88 Heart Rate [ Brachial] Respiratory 15 15 12 Rate Blood Pressure 105/95 H 147/100 H 158/94 H Blood Pressure [Right Brachial artery] O2 Saturation 100 95 95 01/15/21 01/15/21 01/15/21 17:30 17:40 17:45 Temperature 37.2 C Heart Rate 94 90 88 Heart Rate [ Brachial] Respiratory 16 10 L 16 Rate Blood Pressure 162/91 H 116/96 H 163/87 H Blood Pressure [Right Brachial artery] O2 Saturation 96 95 95 01/15/21 01/15/21 01/15/21 17:55 18:05 18:15 Temperature 37.0 C 36.6 C Heart Rate 85 74 Heart Rate [ 79 Brachial] Respiratory 13 15 18 Rate Blood Pressure 164/81 H 158/95 H Blood Pressure 159/76 H [Right Brachial artery] O2 Saturation 95 96 95 01/15/21 01/15/21 01/15/21 18:46 19:46 23:48 Temperature 36.6 C 36.6 C 36.8 C Heart Rate Heart Rate [ 84 89 89 Brachial] Respiratory 20 18 18 Rate Blood Pressure Blood Pressure 149/84 H 131/94 H 148/81 H [Right Brachial artery] O2 Saturation 99 97 98 01/16/21 01/16/21 01/16/21 03:53 05:42 08:00 Temperature 37.0 C 36.9 C 37.3 C Heart Rate Heart Rate [ 90 80 90 Brachial] Respiratory 20 16 14 Rate Blood Pressure Blood Pressure 146/70 H 144/73 H 168/89 H [Right Brachial artery] O2 Saturation 96 95 95 Oxygen O2 Source Room air I&O (Last 24 Hrs): Intake and Output Totals x24h 01/14/21 01/15/21 01/16/21 23:59 23:59 23:59 Intake Total 590 2958.334 1418.333 Output Total 150 3125 2000 Balance 440 -166.666 -581.667 General: Alert, Oriented x3, Cooperative, No acute distress HEENT: Atraumatic, PERRLA Neck: Supple Lymphatic: no adenopathy Neuro: Alert, Non Focal, Oriented Times 3 Cardiovascular: Regular rate, Normal S1, Normal S2 Respiratory: Chest non-tender, No respiratory distress, Breath sounds nml Abdomen: Normal bowel sounds, Soft, No tenderness Extremities: Normal pulses - Results Results: Laboratory Results WBC 7.1 x10^3/uL (4.8-10.8) 01/16/21 05:06 RBC 3.74 10^6/uL (4.20-5.40) L 01/16/21 05:06 Hgb 11.4 g/dL (12.0-16.0) L 01/16/21 05:06 Hct 34.4 % (37.0-47.0) L 01/16/21 05:06 MCV 92.0 fL (81.0-99.0) 01/16/21 05:06 MCH 30.5 pg (27.0-31.0) 01/16/21 05:06 MCHC 33.1 g/dL (32.0-36.0) 01/16/21 05:06 RDW 17.0 % (12.0-15.0) H 01/16/21 05:06 Plt Count 265 10^3/uL (130-450) 01/16/21 05:06 MPV 10.1 fL (7.9-10.8) 01/16/21 05:06 Neut # (Auto) 5.4 10^3/uL (1.5-6.6) 01/16/21 05:06 Lymph # (Auto) 0.9 10^3/uL (1.5-3.5) L 01/16/21 05:06 [place] # (Auto) 0.7 10^3/uL (0.0-1.0) 01/16/21 05:06 Eos # (Auto) 0.0 10^3/uL (0.0-0.7) 01/16/21 05:06 Baso # (Auto) 0.0 10^3/uL (0.0-0.1) 01/16/21 05:06 Absolute Nucleated RBC 0.00 x10^3/uL 01/16/21 05:06 Nucleated RBC % 0.0 /100WBC 01/16/21 05:06 PT 11.8 secs (9.9-12.6) 01/14/21 12:51 INR 1.1 (0.8-1.2) 01/14/21 12:51 Sodium 135 mmol/L (135-145) 01/16/21 05:06 Potassium 3.9 mmol/L (3.5-5.0) 01/16/21 05:06 Chloride 105 mmol/L (101-111) 01/16/21 05:06 Carbon Dioxide 23 mmol/L (21-32) 01/16/21 05:06 Anion Gap 7.0 (6-13) 01/16/21 05:06 BUN 10 mg/dL (6-20) 01/16/21 05:06 Creatinine 0.5 mg/dL (0.4-1.0) 01/16/21 05:06 Estimated GFR (MDRD) 123 (>89) 01/16/21 05:06 Glucose 108 mg/dL (70-100) H 01/16/21 05:06 Calcium 8.3 mg/dL (8.5-10.3) L 01/16/21 05:06 TSH 1.39 uIU/mL (0.34-5.60) 01/16/21 05:06 Nasal Adenovirus (PCR) NOT DETECTED 01/14/21 14:30 Nasal B. parapertussis DNA (PCR) NOT DETECTED 01/14/21 14:30 Nasal Coronavir 229E PCR NOT DETECTED 01/14/21 14:30 Nasal Coronavir HKU1 PCR NOT DETECTED 01/14/21 14:30 Nasal Coronavir NL63 PCR NOT DETECTED 01/14/21 14:30 Nasal Coronavir OC43 PCR NOT DETECTED 01/14/21 14:30 Nasal Enterovir/Rhinovir PCR NOT DETECTED 01/14/21 14:30 Nasal Influenza B PCR NOT DETECTED 01/14/21 14:30 Nasal Influenza A PCR NOT DETECTED 01/14/21 14:30 Nasal Parainfluen 1 PCR NOT DETECTED 01/14/21 14:30 Nasal Parainfluen 2 PCR NOT DETECTED 01/14/21 14:30 Nasal Parainfluen 3 PCR NOT DETECTED 01/14/21 14:30 Nasal Parainfluen 4 PCR NOT DETECTED 01/14/21 14:30 Nasal RSV (PCR) NOT DETECTED 01/14/21 14:30 Nasal B.pertussis DNA PCR NOT DETECTED 01/14/21 14:30 Nasal C.pneumoniae (PCR) NOT DETECTED 01/14/21 14:30 Darian Human Metapneumo PCR NOT DETECTED 01/14/21 14:30 Nasal M.pneumoniae (PCR) NOT DETECTED 01/14/21 14:30 Nasal SARS-CoV-2 (PCR) NOT DETECTED 01/14/21 14:30 - Procedures Procedures: Procedures ESOPHAGOGASTRODUODENOSCOPY [EGD] W/CLOSED BIOPSY (04/01/13) TOTAL KNEE REPLACEMENT (09/27/13) Sepsis Event Note (H) - Evaluation Current Stage of Sepsis: Ruled out ABX Reporting Has patient been on IV antibiotics over the past 48 hours?: No Current Medications - Current Medications Current Medications: Active Medications Acetaminophen (Acetaminophen 325 Mg Tablet) 650 - 975 mg PO Q4HR PRN PRN Reason: PAIN Last Admin: 01/16/21 00:44 Dose: 650 mg Documented by: Aspirin (Aspirin Ec 81 Mg Tablet) 81 mg PO BIDWM [facility] Last Admin: 01/16/21 08:03 Dose: 81 mg Documented by: Atorvastatin Calcium (Atorvastatin 40 Mg Tablet) 40 mg PO DAILY [facility] Last Admin: 01/16/21 08:03 Dose: 40 mg Documented by: Calcium Carbonate/Glycine (Calcium Carbonate Chew 500 Mg Tablet) 500 mg PO BID [facility] Cholecalciferol (Cholecalciferol 25 Mcg Tablet) 50 mcg PO DAILY [facility] Docusate Sodium (Docusate Sodium 100 Mg Capsule) 100 mg PO BID PRN PRN Reason: Constipation Last Admin: 01/16/21 08:15 Dose: 100 mg Documented by: Docusate Sodium (Docusate Sodium 250 Mg Capsule) 250 - 500 mg PO DAILY [facility] Last Admin: 01/16/21 09:46 Dose: Not Given Documented by: Famotidine (Famotidine 20 Mg Tablet) 20 mg PO BID [facility] Last Admin: 01/16/21 08:03 Dose: 20 mg Documented by: Ferrous Sulfate (Ferrous Sulfate 325 Mg Tablet) 325 mg PO DAILY [facility] Last Admin: 01/16/21 08:04 Dose: 325 mg Documented by: Acetaminophen (Ofirmev) 100 mls @ 400 mls/hr IV Q6HR PRN PRN Reason: PAIN Ibuprofen (Ibuprofen 600 Mg Tablet) 600 mg PO Q6HR PRN PRN Reason: Pain 1 to 4 Last Admin: 01/15/21 04:46 Dose: 600 mg Documented by: Levothyroxine Sodium (Levothyroxine 25 Mcg Tablet) 50 mcg PO QDAC [facility] Last Admin: 01/16/21 05:32 Dose: 50 mcg Documented by: Lisinopril (Lisinopril 20 Mg Tablet) 20 mg PO DAILY [facility] Last Admin: 01/16/21 08:04 Dose: 20 mg Documented by: Morphine Sulfate (Morphine 2 Mg/Ml Carpuject) 2 mg IVP Q2HR PRN PRN Reason: PAIN Ondansetron HCl (Ondansetron 4 Mg/2 Ml Vial) 4 mg IVP Q6HR PRN PRN Reason: Nausea / Vomiting Oxycodone HCl (Oxycodone 5 Mg Tablet) 5 mg PO Q4HR PRN PRN Reason: PAIN Prochlorperazine Edisylate (Prochlorperazine 10 Mg/2 Ml Vial) 10 mg IVP Q6HR PRN PRN Reason: Nausea / Vomiting Sodium Chloride (Sodium Chloride Flush 0.9% 10 Ml Syringe) 10 ml IVP 0100,0900,1700 [facility] Last Admin: 01/16/21 08:04 Dose: 10 ml Documented by: Sodium Chloride (Sodium Chloride Flush 0.9% 10 Ml Syringe) 10 ml IVP PRN PRN PRN Reason: NEEDED PER PROVIDER ORDERS Lisinopril 20 mg PO DAILY 03/23/13 Levothyroxine [Synthroid] 50 mcg PO QDAC 09/24/13 Atorvastatin Calcium 40 mg PO DAILY 01/14/21
[2021-01-16] MEDS: CHOLECALCIFEROL 25 MCG TABLET PO SCH (17:26)
[2021-01-16] MEDS: CALCIUM CARBONATE CHEW 500 MG TABLET PO SCH (20:44)
[2021-01-17] MEDS: ACETAMINOPHEN 325 MG TABLET PO PRN (01:29)
[2021-01-17] MEDS: SODIUM CHLORIDE FLUSH 0.9% 10 ML SYRINGE IVP SCH ×2 (01:29→08:13)
[2021-01-17] MEDS: LEVOTHYROXINE 25 MCG TABLET PO SCH (04:59)
[2021-01-17 05:27] LABS: BASOPHILS # (AUTO) 0.1 10^3/uL (0.0-0.1); BASOPHILS % (AUTO) 0.8 %; EOSINOPHILS # (AUTO) 0.2 10^3/uL (0.0-0.7); EOSINOPHILS % (AUTO) 2.9 %; HCT - HEMATOCRIT 34.7 % (37.0-47.0); HGB - HEMOGLOBIN 11.5 g/dL (12.0-16.0); LYMPHOCYTES # (AUTO) 2.3 10^3/uL (1.5-3.5); LYMPHOCYTES % (AUTO) 29.8 %; MEAN CORPUSCULAR HGB CONC 33.1 g/dL (32.0-36.0); MEAN CORPUSCULAR VOLUME 93.5 fL (81.0-99.0); MEAN PLATELET VOLUME 10.2 fL (7.9-10.8); MONOCYTES # (AUTO) 0.9 10^3/uL (0.0-1.0); MONOCYTES % (AUTO) 11.5 %; NEUTROPHILS # (AUTO) 4.2 10^3/uL (1.5-6.6); NEUTROPHILS % (AUTO) 54.6 %; PLT - PLATELET COUNT 266 10^3/uL (130-450); RED BLOOD COUNT 3.71 10^6/uL (4.20-5.40); RED CELL DISTRIBUTION WIDTH 17.4 % (12.0-15.0); WHITE BLOOD COUNT 7.6 x10^3/uL (4.8-10.8)
[2021-01-17 05:36] LABS: CALCIUM 8.6 mg/dL (8.5-10.3); CREATININE 0.6 mg/dL (0.4-1.0); POTASSIUM 3.6 mmol/L (3.5-5.0)
[2021-01-17] MEDS: CHOLECALCIFEROL 25 MCG TABLET PO SCH (08:12)
[2021-01-17] MEDS: ASPIRIN EC 81 MG TABLET PO SCH (08:12)
[2021-01-17] MEDS: FAMOTIDINE 20 MG TABLET PO SCH (08:12)
[2021-01-17] MEDS: lisinopriL 20 MG TABLET PO SCH (08:12)
[2021-01-17] MEDS: ATORVASTATIN 40 MG TABLET PO SCH (08:12)
[2021-01-17] MEDS: CALCIUM CARBONATE CHEW 500 MG TABLET PO SCH (08:12)
[2021-01-17] MEDS: DOCUSATE SODIUM 250 MG CAPSULE PO SCH (08:12)
[2021-01-17] MEDS: FERROUS SULFATE 325 MG TABLET PO SCH (08:12)
--- NOTE | 2021-01-17 13:28 | Discharge Plan ---
"Discharge Plan for SNF / [facility] - Discharge Plan And Transition Orders Problem Reviewed?: Yes Disposition: 03 SNF DC/Xfer Condition: Stable Allergies and Adverse Reactions: Allergies Allergy/AdvReac Type Severity Reaction Status Date / Time No Known Drug Allergies Allergy Verified 01/14/21 12:05 Health Concerns: s/p care of fracture of tibial shaft, left, repair Plan of Treatment: pt may have nonweightbearing for approximately 6 weeks following surgery, left leg. pt may have aspirin for DVT prophylaxis, Continue PT and OT, Follow-up with orthopedics surgeon office in 2 weeks or early as needed Care Goals: stabilization and improvement/healing of her injury Assessment: discussed the care plan with pt, answered her questions, she understood - SNF / SENIOR CARE Transition Orders Admit to (Facility): [facility] in [place] Under the care of (Name): Dr. Travis De La Cruz Discharge Diagnosis: Fracture of tibial shaft, left. HLD, HTN, hypothyroidism Medicare Certification Statement: I certify that [facility] care is medically necessary on a continuing basis for any of the conditions for which she/he is receiving care during hospitalization. Notify PCP of admission and forward orders to primary provider for signature. Weight on admission and: Daily Call PCP immediately if weight increases by: 2 kg Other Notification Orders: Call PCP immediately if patient develops dyspnea, chest pain/tightness or edema. House Bowel Program: Yes Additional Bowel Program Orders: If no BM after 2 days, nurse may give M.O.M. 30ml PO PRN and/or ducolax Supp 1 [place] and/or JUAN R 250mg P.O., and/or senna 1-2 tabs PO. On day 3 nurse may give repeat above order until residents constipation is resolved. Annual Influenza Vaccine (between Jul 18 and February 14): Yes Two-step PPD per [facility] [phone] or approved exception documents: Yes Treatments & Other Orders: pt may have nonweightbearing for approximately 6 weeks following surgery, left leg. pt may have aspirin for DVT prophylaxis, Continue PT and OT, Follow-up with orthopedics surgeon office in 2 weeks or early as needed Medication Orders: PLEASE REFER TO THE DISCHARGE MEDICATION LIST. Insulin Orders?: No - Medications New Prescriptions: oxyCODONE [Roxicodone] 5 mg PO Q4HR PRN #20 tablet PRN Reason: Pain Aspirin EC [Ecotrin] 81 mg PO BIDWM #30 tablet Calcium Carbonate [Tums (Calcium Carbonate 500mg)] 500 mg PO BID #30 tablet Cholecalciferol [Vitamin D3] 50 mcg PO DAILY #30 tablet - Diet Type: Geriatric Texture: Regular Liquids: Thin May have monthly special meal: Yes - Therapies | Activity Therapy: Evaluation | Treat if indicated: PT, OT Rehabilitation Potential: Maximize functional status Activity: Activity as Tolerated Weight Bearing: No Weight"
--- NOTE | 2021-01-17 13:49 | DISCHARGE SUMMARY ---
"Discharge Summary Admit Date: 01/14/21 Discharge Date: 01/17/21 Discharging Provider: Kiet Powers Primary Care Provider: Dolores Mcdonald Condition at Discharge: Stable Discharge Disposition: SNF DC/Xfer Discharge Facility Name: [facility] - DIAGNOSES Discharge Diagnoses with Status of Each Condition: (1) Fracture of tibial shaft, left pt had Open reduction internal fixation left distal tibia with [employer] 15 hole medial tibial locking plate done by surgeon on hospital. pt did well after surgery. pt is d/c to SNF of [facility] today per multi-disciplinary team meeting, also as surgeon's note. pt may have nonweightbearing for approximately 6 weeks following surgery, left leg. pt may have aspirin for DVT prophylaxis, Continue PT and OT, Follow-up with orthopedics surgeon office in 2 weeks or early as needed (2) Hyperlipidemia stable (3) Hypertension stable (4) Hypothyroidism TSH is normal, resume home Synthroid - HPI History of Present Illness: refer from Dr. Amin's HPI on 01/14/21 Patient is a 70-year-old female with medical history significant for hyperlipidemia, hypertension, hypothyroidism and anemia who presented to the ED after a mechanical fall today at home. She stood on stepladder to change a light bulb when the ladder swung back causing her to fall on her bottom. She did not hit her head or blackout. It was not witnessed by anybody. She lives alone. She is experiencing leg pain as a result of the fall and presented to the ED for evaluation. CT scan of her left lower extremity showed she had an acute distal tibia and fibula fracture. Xray of the left knee also showed proximal fibular fracture. As a result she was presented for admission for further treatment. At bedside she is resting comfortably. She rates her pain 1 out of 10. She denies chest pain, dyspnea, abdominal pain, nausea, vomiting, fever or chills. She is an active person. She uses a walking stick to get around. - CONSULTS | PROCEDURES Consultations: Dr. Cline Procedures: Open reduction internal fixation left distal tibia with [employer] 15 hole medial tibial locking plate - HOSPITAL COURSE Hospital Course: Patient was admitted for evaluation of mechanical fall. image Studies show pt had Displaced spiral fracture distal left tibia with proximal comminuted fibular fracture. pt had Open reduction internal fixation left distal tibia with [employer] 15 hole medial tibial locking plate done by surgeon. Patient did well and improved quickly s/p of fracture repair. Patient is discharged to [facility] on today - ALLERGIES Allergies/Adverse Reactions: Allergies Allergy/AdvReac Type Severity Reaction Status Date / Time No Known Drug Allergies Allergy Verified 01/14/21 12:05 - MEDICATIONS Home Medications: Ambulatory Orders Medication Instructions Recorded Confirmed Lisinopril 20 mg PO DAILY 03/23/13 01/14/21 Levothyroxine [Synthroid] 50 mcg PO QDAC 09/24/13 01/14/21 Docusate Sodium 100 mg PO DAILY #30 capsule 08/07/20 01/14/21 Ferrous Sulfate 325 mg PO DAILY #30 tablet 08/07/20 01/14/21 Atorvastatin Calcium 40 mg PO DAILY 01/14/21 01/14/21 Aspirin EC [Ecotrin] 81 mg PO BIDWM #30 tablet 01/17/21 Calcium Carbonate [Tums (Calcium 500 mg PO BID #30 tablet 01/17/21 Carbonate 500mg)] Cholecalciferol [Vitamin D3] 50 mcg PO DAILY #30 tablet 01/17/21 oxyCODONE [Roxicodone] 5 mg PO Q4HR PRN #20 tablet 01/17/21 - PHYSICAL EXAM AT DISCHARGE General Appearance: positive: No acute distress, Alert. negative: Lethargic Eyes Bilateral: positive: Normal inspection, PERRL, No lid inflammation ENT: positive: ENT inspection nml, No signs of dehydration. negative: Purulent nasal drainage Neck: positive: Nml inspection, Trachea midline. negative: Thyromegaly, Tracheal deviation Respiratory: positive: Chest non-tender, No respiratory distress, Breath sounds nml. negative: Wheezes, Rales, Rhonchi Cardiovascular: positive: Regular rate & rhythm, No murmur. negative: Tachycardia, Bradycardia, Systolic murmur, Diastolic murmur Peripheral Pulses: positive: 2+ Abdomen: positive: Non-tender, Nml bowel sounds, No distention. negative: Tenderness, Guarding, Rebound Back: positive: Nml inspection Skin: positive: Color nml, Warm, Dry. negative: Cyanosis, Diaphoresis, Pallor Extremities: positive: Non-tender, Other (pt has intact neurovascular status in the left distal. ) Neurologic/Psychiatric: positive: Oriented x3, Sensation nml, Mood/affect nml. negative: Weakness, Sensory loss, Facial droop, Slurred/abnml speech, Depressed mood/affect - LABS Result Diagrams: 01/17/21 04:50 01/17/21 04:50 - SEPSIS Current Stage of Sepsis: Ruled out - FOLLOW UP Follow Up: pt may have nonweightbearing for approximately 6 weeks following surgery, left leg. pt may have aspirin for DVT prophylaxis, Continue PT and OT, Follow-up with orthopedics surgeon office in 2 weeks or early as needed - TIME SPENT Time Spent in Discharge (Minutes): 30"
[2021-01-17 15:41] LABS: CORONAVIRUS 229E-RESP PCR NOT DETECTED; CORONAVIRUS HKU1-RESP PCR NOT DETECTED; CORONAVIRUS NL63-RESP PCR NOT DETECTED; CORONAVIRUS OC43-RESP PCR NOT DETECTED; HUMAN METAPNEUMOVIRUS NOT DETECTED; INFLUENZA A- RESP PCR PANEL NOT DETECTED; RHINOVIRUS/ENTEROVIRUS NOT DETECTED; SARS-CoV-2 -RESP PCR PANEL NOT DETECTED
[2021-01-17 15:42] LABS: B. PARAPERTUSSIS- RESP PCR PAN NOT DETECTED; B. PERTUSSIS- RESP PCR PANEL NOT DETECTED; C. PNEUMONIAE- RESP PCR PANEL NOT DETECTED; INFLUENZA B - RESP PCR PANEL NOT DETECTED; M. PNEUMONIAE- RESP PCR PANEL NOT DETECTED; PARAINFLUENZA VIRUS 1 NOT DETECTED; PARAINFLUENZA VIRUS 2 NOT DETECTED; PARAINFLUENZA VIRUS 3 NOT DETECTED; PARAINFLUENZA VIRUS 4 NOT DETECTED; RSV- RESP PCR PANEL NOT DETECTED
[2021-01-17 16:09] VITALS: BP 148/82
== END 2021-01-17 16:10 | DRG 494 ==
LOC: EDUNIT# → ED 11:56 → MS2 14:08
PROVIDERS: ADMIT Internal Medicine; ATTEND Nurse Practitioner Gerontology
PROC: 0QSH04Z Reposition Left Tibia with Internal Fixation Device, Open Approach (ICD-10-PCS; principal; 2021-01-15 13:30)
DX: S82.242A Displaced spiral fracture of shaft of left tibia, initial encounter for closed fracture (principal); S82.452A Displaced comminuted fracture of shaft of left fibula, initial encounter for closed fracture; W11.XXXA Fall on and from ladder, initial encounter; Y92.009 Unspecified place in unspecified non-institutional (private) residence as the place of occurrence of the external cause; I10 Essential (primary) hypertension; G89.29 Other chronic pain; M54.9 Dorsalgia, unspecified; E03.9 Hypothyroidism, unspecified; E78.5 Hyperlipidemia, unspecified; D50.9 Iron deficiency anemia, unspecified; E66.9 Obesity, unspecified; Z68.36 Body mass index [BMI] 36.0-36.9, adult; M17.12 Unilateral primary osteoarthritis, left knee; M19.072 Primary osteoarthritis, left ankle and foot; Z74.09 Other reduced mobility; Z96.652 Presence of left artificial knee joint; Z79.899 Other long term (current) drug therapy; Z20.822 Contact with and (suspected) exposure to COVID-19
CPT/HCPCS: 0202U; 29515; 36415 ×2; 71045; 80048 ×2; 84443 ×2; 85025 ×2; 85610; 87631; 93005 ×2; 97110; 97116; 97161; 97166; 99283; A9270; C1713 ×2; J0690; J1170; J3370; J7120

== ENCOUNTER 2021-02-20 | Outpatient (CLI) | payer MEDICARE | END 2021-02-20 14:05 | disposition EMS.NT | DX: I10 Essential (primary) hypertension (principal) ==

== ENCOUNTER 2021-03-16 07:00 | Outpatient (CLI) | payer MEDICARE ==
--- NOTE | 2021-03-16 14:51 | XRAY Report ---
PROCEDURE: Tib/Fib LT INDICATIONS: LOWER TIBIA Fx TECHNIQUE: 2 views of the tibia and fibula were acquired. COMPARISON: 01/14/2021 FINDINGS: Bones: Postoperative changes of side plate and screw fixation of a distal fibular fracture is seen. T here is also a fracture of the proximal and distal fibular shaft which demonstrate interval healing. The knee demonstrates medial unicondylar arthroplasty and tricompartmental degenerative changes with osteophytes. Soft tissues: No suspicious soft tissue calcifications or masses. IMPRESSION: 1. Healing fracture of the distal tibia with sideplate and screw fixation. 2. Healing fractures of the proximal fibula and distal fibula. Reviewed by: Luc Workman on 03/16/2021 2:49 PM PDT Approved by: Luc Workman on 03/16/2021 2:49 PM PDT Station ID: [id number]
== END 2021-03-16 23:59 | disposition home or self-care (01) ==
LOC: DI.N 07:00
PROVIDERS: ATTEND Physician Assistant
DX: S82.302D Unspecified fracture of lower end of left tibia, subsequent encounter for closed fracture with routine healing (principal); S82.832D Other fracture of upper and lower end of left fibula, subsequent encounter for closed fracture with routine healing

== ENCOUNTER 2021-04-03 03:27 | Outpatient (CLI) | payer MEDICARE | END 2021-04-03 03:28 | disposition critical access hospital (66) | LOC: EMS 03:27 | DX: R60.0 Localized edema (principal); H57.89 Other specified disorders of eye and adnexa | CPT/HCPCS: A0425; A0429 ==

== ENCOUNTER 2021-04-03 03:44 | Emergency (ER) | payer MEDICARE ==
[2021-04-03] MEDS ORDERED: DOXYCYCLINE 100 MG TABLET PO STA (04:06)
[2021-04-03] MEDS ORDERED: MUPIROCIN 2% OINT 1 GM TOP STA (04:06)
--- NOTE | 2021-04-03 04:08 | ED Physician Documentation ---
PD HPI SKIN - Stated complaint Stated Complaint: CELLULITIS L LEG/ INCREASED SWELLING - Chief complaint Chief Complaint: Wound - History obtained from History obtained from: Patient - History of Present Illness Timing - onset: How many weeks ago (1) Timing - duration: Weeks (onset just over a week ago of redness and mild drainage medial left ankle. Seen by PMD 7 days ago, and tried topical cleaning/ointment, but increased so started Cephalexin abx 5 days ago. Stagnant appearance for 2-3 days and now worsening the past 2-3 days. No fevers/malaise. Also lisinopril dose up) Timing - details: Gradual onset, Still present Location: LLE (medial ankle and now to medial lower leg, mild at outer ankle.) Quality / character: Burning. No: Itchy Associated symptoms: No: Fever, Myalgias, N/V/D Similar symptoms before: Diagnosis (had infection at medial ankle in February, a month after surgical repair ankle fracture.) Recently seen: Clinic (1 week ago) Review of Systems Constitutional: denies: Fever, Chills, Myalgias Eyes: reports: Other (puffy eyelids bilaterally tonight) Nose: denies: Rhinorrhea / runny nose, Congestion Throat: denies: Sore throat Respiratory: denies: Dyspnea, Cough GI: denies: Abdominal Pain, Nausea, Vomiting, Diarrhea Skin: reports: Rash (left medial ankle and now lower leg.), Lesions Neurologic: denies: Generalized weakness, Near syncope, Altered mental status, Headache PD PAST MEDICAL HISTORY - Past Medical History Past Medical History: Yes Cardiovascular: Hypertension, High cholesterol Respiratory: None Neuro: None Endocrine/Autoimmune: HyPOthyroidism, Other GI: None SHIP PILOT: None : None HEENT: None Psych: None Musculoskeletal: Osteoarthritis, Chronic back pain, Other Derm: None - Past Surgical History Past Surgical History: Yes General: Colonoscopy Ortho: Knee replacement, Other /SHIP PILOT: Tubal ligation - Present Medications Home Medications: Ambulatory Orders Medication Instructions Recorded Confirmed Lisinopril 20 mg PO DAILY 03/23/13 01/14/21 Levothyroxine [Synthroid] 50 mcg PO QDAC 09/24/13 01/14/21 Docusate Sodium 100 mg PO DAILY #30 capsule 08/07/20 01/14/21 Ferrous Sulfate 325 mg PO DAILY #30 tablet 08/07/20 01/14/21 Atorvastatin Calcium 40 mg PO DAILY 01/14/21 01/14/21 Aspirin EC [Ecotrin] 81 mg PO BIDWM #30 tablet 01/17/21 Calcium Carbonate [Tums (Calcium 500 mg PO BID #30 tablet 01/17/21 Carbonate 500mg)] Cholecalciferol [Vitamin D3] 50 mcg PO DAILY #30 tablet 01/17/21 oxyCODONE [Roxicodone] 5 mg PO Q4HR PRN #20 tablet 01/17/21 Doxycycline Hyclate 100 mg PO BID #14 04/03/21 Mupirocin Calcium [Mupirocin] 1 applic TP TID #15 gm 04/03/21 - Allergies Allergies/Adverse Reactions: Allergies Allergy/AdvReac Type Severity Reaction Status Date / Time No Known Drug Allergies Allergy Verified 04/03/21 03:55 - Social History Does the pt smoke?: No Smoking Status: Never smoker Does the pt drink ETOH?: No Does the pt have substance abuse?: No - Immunizations Immunizations are current?: Yes - POLST Patient has POLST: No POLST Status: Full Code PD ED PE NORMAL - Vitals Vital signs reviewed: Yes - General General: Alert and oriented X 3, No acute distress, Well developed/nourished - HEENT HEENT: PERRL, EOMI, Other (no conjunctival redness nor discharge. Mild edema of both upper eyelids without redness. No oral edema. Normal voice. ) - Neck Neck: Supple, no meningeal sign, No adenopathy - Cardiac Cardiac: RRR, No murmur - Respiratory Respiratory: Clear bilaterally - Abdomen Abdomen: Soft, Non tender - Derm Derm: Normal color, Warm and dry, Other (medial ankle and lower leg with blistering red rash with yellow clear drainage. No appearance of abscess. Minimally tender. The redness demarcates crisply at upper and anterior aspects.) Results - Vitals Vitals: Vital Signs - 24 hr 04/03/21 03:48 Temperature 36.6 C Heart Rate 87 Respiratory 18 Rate Blood Pressure 163/105 H O2 Saturation 99 Oxygen O2 Source Room air - Labs Labs: Microbiology 04/03/21 04:10 Wound Culture - Preliminary Leg - Left Laboratory Tests 04/03/21 04/03/21 04/03/21 04:16 04:16 04:16 WBC 5.3 RBC 3.97 L Hgb 12.3 Hct 37.6 MCV 94.7 MCH 31.0 MCHC 32.7 RDW 13.7 Plt Count 363 MPV 9.6 Neut # (Auto) 2.7 Lymph # (Auto) 1.5 Burke # (Auto) 0.6 Eos # (Auto) 0.5 Baso # (Auto) 0.1 Absolute Nucleated RBC 0.00 Nucleated RBC % 0.0 Sodium 142 Potassium 3.7 Chloride 105 Carbon Dioxide 26 Anion Gap 11.0 BUN 13 Creatinine 0.7 Estimated GFR (MDRD) 83 L Glucose 104 H Lactic Acid 0.7 Calcium 9.2 Total Bilirubin 0.7 AST 19 ALT 16 Alkaline Phosphatase 88 Total Protein 6.9 Albumin 3.9 Globulin 3.0 Albumin/Globulin Ratio 1.3 Lipase 26 PD MEDICAL DECISION MAKING - ED course Complexity details: considered differential (Redness and blistering with some yellow drainage superficially. It is demarcated on the lower leg and primarily medial aspect so consideration of spreading cellulitis versus reaction to the Neosporin she is using. Does not seem septic. Bilateral eyelid puffy, without conjunctivitis appearance.), d/w patient Departure - Departure Disposition: 01 Home, Self Care Clinical Impression: Cellulitis of lower leg Eyelid edema Qualifiers: Laterality: unspecified laterality Qualified Code(s): H02.849 - Edema of unspecified eye, unspecified eyelid Condition: Stable Record reviewed to determine appropriate education?: Yes Instructions: ED Infec Skin Cellulitis Follow-Up: Dolores Perez PA-C [Primary Care Provider] - Rich Cline MD [Provider Admit Priv/Credential] - Prescriptions: Doxycycline Hyclate 100 mg PO BID #14 Mupirocin Calcium [Mupirocin] 1 applic TP TID #15 gm Comments: We can change from your current cephalexin antibiotic to doxycycline which has better coverage against staph aureus, a likely culprit for this infection. The increased redness of the site could potentially even be a reaction to the Neosporin you had been using. We can swap to mupirocin instead. Clean the wound gently with soap and water or very dilute peroxide and water twice daily and apply mupirocin ointment lightly. Absorbent dressing to the area such as gauze and gentle wrap. The swelling around your eyelids may be some allergic reactions developing and that should be taken care of since we are changing medications. However sometimes you can get swelling around the face in relationship to CRISTO inhibitor blood pressure medicines, such as your lisinopril. As such I would have you hold your lisinopril for now and see that the swelling in the eyelids goes away and then discuss resuming your medicine with your primary care in a few days. Talk with your primary care or orthopedics in 2 to 3 days to let them know how you are doing and also to have them look up the culture results to verify were on the appropriate antibiotic. Return to the ER if worsening.
[2021-04-03 04:22] LABS: BASOPHILS # (AUTO) 0.1 10^3/uL (0.0-0.1); BASOPHILS % (AUTO) 1.3 %; EOSINOPHILS # (AUTO) 0.5 10^3/uL (0.0-0.7); EOSINOPHILS % (AUTO) 9.3 %; HCT - HEMATOCRIT 37.6 % (37.0-47.0); HGB - HEMOGLOBIN 12.3 g/dL (12.0-16.0); LYMPHOCYTES # (AUTO) 1.5 10^3/uL (1.5-3.5); LYMPHOCYTES % (AUTO) 27.9 %; MEAN CORPUSCULAR HGB CONC 32.7 g/dL (32.0-36.0); MEAN CORPUSCULAR VOLUME 94.7 fL (81.0-99.0); MEAN PLATELET VOLUME 9.6 fL (7.9-10.8); MONOCYTES # (AUTO) 0.6 10^3/uL (0.0-1.0); MONOCYTES % (AUTO) 10.6 %; NEUTROPHILS # (AUTO) 2.7 10^3/uL (1.5-6.6); NEUTROPHILS % (AUTO) 50.7 %; PLT - PLATELET COUNT 363 10^3/uL (130-450); RED BLOOD COUNT 3.97 10^6/uL (4.20-5.40); RED CELL DISTRIBUTION WIDTH 13.7 % (12.0-15.0); WHITE BLOOD COUNT 5.3 x10^3/uL (4.8-10.8)
[2021-04-03 04:35] LABS: ALBUMIN 3.9 g/dL (3.2-5.5); ALBUMIN/GLOBULIN RATIO 1.3 (1.0-2.2); BILIRUBIN,TOTAL 0.7 mg/dL (0.2-1.0); CALCIUM 9.2 mg/dL (8.5-10.3); CREATININE 0.7 mg/dL (0.4-1.0); POTASSIUM 3.7 mmol/L (3.5-5.0); TOTAL PROTEIN 6.9 g/dL (6.7-8.2)
[2021-04-03 07:46] VITALS: BP 113/70
== END 2021-04-03 07:46 | disposition home or self-care (01) ==
LOC: EDUNIT# → ED 03:44
DX: L03.116 Cellulitis of left lower limb (principal); H02.849 Edema of unspecified eye, unspecified eyelid
CPT/HCPCS: 36415; 80053; 83605; 83690; 85025; 87070; 87205; 99283; 99284; A9270

== ENCOUNTER 2021-04-04 04:05 | Outpatient (CLI) | payer MEDICARE | END 2021-04-04 04:06 | disposition EMS.NT | LOC: EMS 04:05 | DX: Z03.89 Encounter for observation for other suspected diseases and conditions ruled out (principal) ==

== ENCOUNTER 2021-06-15 14:21 | Outpatient (CLI) | payer MEDICARE ==
--- NOTE | 2021-06-18 14:22 | Mammography Report ---
BILATERAL DIGITAL SCREENING MAMMOGRAM 3D/2D: 06/15/2021 CLINICAL: Routine screening. Comparison is made to exams dated: 05/03/2020 mammogram, 07/26/2019 ultrasound, 05/11/2019 ultrasound, mammogram, 11/28/2015 mammogram, and 12/10/2013 mammogram - [facility]. The tissue of both breasts is predominantly fatty. No significant masses, calcifications, or other findings are seen in either breast. There has been no significant interval change. IMPRESSION: NEGATIVE There is no mammographic evidence of malignancy. A 1 year screening mammogram is recommended. This exam was interpreted at Station ID: [id number]. NOTE: For mammograms, a report in lay terms will be sent to the patient. Approximately 15% of breast malignancies will not be visualized mammographically. In the management of a palpable breast mass, a negative mammogram must not discourage biopsy of a clinically suspicious lesion. Electronically Signed By: Andrea Hines M.D. [email or web address]:06/15/2021 16:06:31 ACR BI-RADS Category 1: Negative 3341F PARENCHYMAL PATTERN: (F) - The breast(s) demonstrate(s) diffuse fatty replacement. BI-RADS CATEGORY: (1) - 1 RECOMMENDATION: (ANNUAL) - Recommend routine annual screening mammography. [id number] 1 year screening LATERALITY: (B)
== END 2021-06-15 14:22 | disposition home or self-care (01) ==
LOC: DI 14:21
PROVIDERS: ATTEND Physician Assistant Medical
DX: Z12.31 Encounter for screening mammogram for malignant neoplasm of breast (principal)

== ENCOUNTER 2021-06-15 14:22 | Outpatient (CLI) | payer MEDICARE ==
--- NOTE | 2021-06-15 16:29 | DEXA Report ---
PROCEDURE: Dexa Spine and/or Hip INDICATIONS: POST MENOPAUSAL TECHNIQUE: Dual energy x-ray absorptiometry (DXA) was performed on a [employer] System. Regions measur ed are the AP Spine, femoral neck, and if needed forearm. COMPARISON: None. FINDINGS: Lumbar Spine: Bone Mineral Density 1.342 g/cm/cm,T score 1.3, The measured bone mineral density of the lumbar sp ine is spuriously elevated by degenerative disc disease and associated sclerotic endplate change. Left Hip: Bone Mineral Density 0.876 g/cm/cm,T score -1.0. Left Femoral Neck: Bone Mineral Density 0.868 g/cm/cm, T score -1.2. (T score greater or equal to -1.0: NORMAL) (T score from -1.1 to -2.4: OSTEOPENIA) (T score less than or equal to -2.5 to: OSTEOPOROSIS) Impression: Osteopenia. Patients with diagnosis of osteoporosis or osteopenia should have regular bone mineral density assess ment. For those eligible for Medicare, routine testing is allowed once every 2 years. Testing frequ ency can be increased for patients who have rapidly progressing disease or for those who are receivin g medical therapy to restore bone mass. Reviewed by: Moses Fuentes MD on 06/15/2021 4:28 PM PDT Approved by: Moses Fuentes MD on 06/15/2021 4:28 PM PDT Station ID: [id number]
== END 2021-06-15 14:23 | disposition home or self-care (01) ==
LOC: DI 14:22
PROVIDERS: ATTEND Physician Assistant Medical
DX: M85.88 Other specified disorders of bone density and structure, other site (principal)

== ENCOUNTER 2021-06-26 08:11 | Outpatient (CLI) | payer MEDICARE ==
--- NOTE | 2021-06-27 09:03 | XRAY Report ---
PROCEDURE: Knee 4 View BILAT INDICATIONS: BILATERAL KNEE, ARTHRITIS TECHNIQUE: 4 views of the each knee(s) were acquired. COMPARISON: Left knee radiographs 01/14/2021, 09/27/2013. Bilateral knee radiographs 04/20/2013. FINDINGS: Right knee: Severe [id number]-tf-[id number] joint space narrowing. Large osteophytes. Findings progressed compare d to 2013. No fracture or dislocation. No suspicious osseous lesion. Left knee: Left knee medial compartment hemiarthroplasty. Questionable lucency surrounding the femor al condyle component. The femoral component is mildly subluxed medially compared to the tibial compon ent. There is heterotopic calcification at the gutter of medial joint space. There is severe bone-on- bone joint space loss at the lateral compartment. Large osteophytes. Overall extensive degenerative c hange is markedly progressed compared to 2013. No fractures or dislocations. No suspicious bony lesi ons. Soft tissues: No joint effusion. No suspicious soft tissue calcifications. IMPRESSION: Severe bilateral knee DJD. Right knee most severe at the medial compartment. Left knee most severe at the lateral compartment. Left knee medial hemiarthroplasty demonstrates subo ptimal alignment on this weight bearing radiograph. Reviewed by: Kuldip Abad MD on 06/27/2021 9:02 AM PDT Approved by: Kuldip Abad MD on 06/27/2021 9:02 AM PDT Station ID: [id number]
== END 2021-06-26 23:59 | disposition home or self-care (01) ==
LOC: DI.N 08:11
PROVIDERS: ATTEND Physician Assistant
DX: M17.0 Bilateral primary osteoarthritis of knee (principal); Z96.652 Presence of left artificial knee joint

== ENCOUNTER 2021-09-21 10:05 | Outpatient (CLI) | payer MEDICARE ==
--- NOTE | 2021-09-21 11:01 | XRAY Report ---
PROCEDURE: Wrist 3 View RT INDICATIONS: RIGHT WRIST PAIN S/P FALL TECHNIQUE: 3 views of the wrist were acquired. COMPARISON: None FINDINGS: Bones: There is a mildly comminuted, mildly impacted intra-articular fracture of the distal right rad ius with overlying soft tissue swelling. Scaphoid appears intact without abnormal widening of the sca pholunate interval. Background degenerative changes of the right wrist most severe in the first carpo metacarpal joint. Moderate degenerative changes of the right thumb metacarpophalangeal and interphala ngeal joints as well as the triscaphe joint. Degenerative changes of the distal radiocarpal joint. No suspicious bony lesions. Soft tissues: No suspicious soft tissue calcifications. IMPRESSION: Mildly comminuted and impacted fracture of the distal right radius with intra-articular extension. Degenerative changes of the right wrist as described above. Reviewed by: Andrea Hines MD on 09/21/2021 11:00 AM PDT Approved by: Andrea Hines MD on 09/21/2021 11:00 AM PDT Station ID: [id number]
== END 2021-09-21 23:59 | disposition home or self-care (01) ==
LOC: DI.N 10:05
PROVIDERS: ATTEND Nurse Practitioner
DX: S52.591A Other fractures of lower end of right radius, initial encounter for closed fracture (principal)

== ENCOUNTER 2021-11-19 09:45 | Outpatient (CLI) | payer MEDICARE ==
--- NOTE | 2021-11-19 13:42 | XRAY Report ---
PROCEDURE: Wrist 3 View RT INDICATIONS: UNSP FX LOWER END OF RIGHT RADIUS TECHNIQUE: 3 views of the wrist were acquired. COMPARISON: 09/21/2021 FINDINGS: Bones: Impacted and slightly displaced comminuted fracture involving right distal radius extending to the radiocarpal joint space is again seen with overall alignment not significantly changed from prio r study. There is osteopenia. Osteoarthritic changes are again noted throughout wrist joints. No new fracture or dislocation.. No suspicious bony lesions. Scaphoid view: Scaphoid is grossly intact. Soft tissues: No suspicious soft tissue calcifications. IMPRESSION: Impacted and comminuted intra-articular fracture of distal radius not significantly changed from prio r study. No new fracture or dislocation. Wrist joint osteoarthritis. Osteopenia. Reviewed by: Kin Baugh MD on 11/19/2021 1:40 PM PST Approved by: Kin Baugh MD on 11/19/2021 1:40 PM PST Station ID: [id number]
== END 2021-11-19 23:59 | disposition home or self-care (01) ==
LOC: DI.N 09:45
PROVIDERS: ATTEND Orthopaedic Surgery
DX: S52.501A Unspecified fracture of the lower end of right radius, initial encounter for closed fracture (principal); M19.031 Primary osteoarthritis, right wrist; M85.88 Other specified disorders of bone density and structure, other site

== ENCOUNTER 2023-07-03 12:55 | Outpatient (CLI) | payer MEDICARE ==
--- NOTE | 2023-07-04 10:35 | Mammography Report ---
BILATERAL DIGITAL SCREENING MAMMOGRAM 3D/2D: 07/03/2023 CLINICAL: Routine screening. Comparison is made to exams dated: 06/15/2021 mammogram, 05/03/2020 mammogram, 05/11/2019 mammogram, 10/2016 mammogram, and 12/10/2013 mammogram - [facility]. Both breasts are almost entirely fatty (category a/<25% glandular tissue). No significant masses, calcifications, or other findings are seen in either breast. There has been no significant interval change. IMPRESSION: NEGATIVE There is no mammographic evidence of malignancy. A 1 year screening mammogram is recommended. Based on the Tyrer Cuzick model (a risk assessment model) the patients lifetime risk is 3.5% and her 10 year risk is 2.4%. According to the ACR, ACS, and NCCN guidelines, an annual breast MRI exam rené g with mammogram is recommended if the patients lifetime risk is 20% or greater. This exam was interpreted at Station ID: [id number]. NOTE: For mammograms, a report in lay terms will be sent to the patient. Approximately 15% of breast malignancies will not be visualized mammographically. In the management of a palpable breast mass, a negative mammogram must not discourage biopsy of a clinically suspicious lesion. Electronically Signed By: Yanely [email or web address]:07/03/2023 16:41:12 letter sent: No_Letter ACR BI-RADS Category 1: Negative 3341F PARENCHYMAL PATTERN: (F) - The breast(s) demonstrate(s) diffuse fatty replacement. BI-RADS CATEGORY: (1) - 1 Mammogram [id number] 1 year screening LATERALITY: (B)
== END 2023-07-03 12:56 | disposition home or self-care (01) ==
LOC: DI 12:55
PROVIDERS: ATTEND Physician Assistant
DX: Z12.31 Encounter for screening mammogram for malignant neoplasm of breast (principal)

== ENCOUNTER 2023-07-31 12:39 | Outpatient (CLI) | payer MEDICARE ==
--- NOTE | 2023-07-31 18:25 | DEXA Report ---
PROCEDURE: Dexa Spine and/or Hip INDICATIONS: OSTEOPENIA TECHNIQUE: Dual energy x-ray absorptiometry (DXA) was performed on a [employer] System. Regions measur ed are the AP Spine, femoral neck, and if needed forearm. COMPARISON: 06/15/2021 FINDINGS: Lumbar Spine: Bone Mineral Density 1.432 g/cm/cm,T score 1.9. Previous T score 1.3. Left Femoral Neck: Bone Mineral Density 0.806 g/cm/cm, T score -1.7. Previous T score -1.2. Left Hip: Bone Mineral Density 0.850 g/cm/cm,T score -1.3. There has been no statistically significant change i n bone mineral density since the prior study. Previous T score -1.0. Left Forearm: Bone Mineral Density 0.854 g/cm/cm, T score -0.3. (T score greater or equal to -1.0: NORMAL) (T score from -1.1 to -2.4: OSTEOPENIA) (T score less than or equal to -2.5 to: OSTEOPOROSIS) Impression: By WHO criteria, this patient has low bone density (osteopenia). Patients with diagnosis of osteoporosis or osteopenia should have regular bone mineral density assess ment. For those eligible for Medicare, routine testing is allowed once every 2 years. Testing frequ ency can be increased for patients who have rapidly progressing disease or for those who are receivin g medical therapy to restore bone mass. Reviewed by: Fortunato Newton MD on 07/31/2023 6:23 PM PDT Approved by: Fotrunato Newton MD on 07/31/2023 6:23 PM PDT Station ID: [id number]
== END 2023-07-31 12:40 | disposition home or self-care (01) ==
LOC: DI 12:39
PROVIDERS: ATTEND Physician Assistant
DX: M85.80 Other specified disorders of bone density and structure, unspecified site (principal)